=== PATIENT | female | born 1945 | race Native Hawaiian/Other Pacific Islander ===

== ENCOUNTER 2019-03-18 12:35 | Outpatient (REF) | payer OTHER, SELFPAY ==
[2019-03-18 18:20] LABS: HCT 45.9 % (36.0-46.0); HGB 15.2 g/dL (12.0-15.5); Mean Corp. HGB Concentration 33.1 g/dL (32.0-36.0); Mean Corpuscular Hemoglobin 30.3 pg (27.0-33.0); Mean Corpuscular Volume 91.4 fL (80-95); Mean Platelet Volume 9.8 fL (8.0-11.0); Platelet Count 282 x1000/uL (130-400); RBC 5.02 m/cumm (4.00-5.20); RBC Distribution Width 12.8 % (11.7-14.6); White Blood Cell Count 5.13 k/cumm (4.4-10.8)
[2019-03-18 18:51] LABS: Anion Gap 8.8 mmol/L (3-11); BUN 14 mg/dL (7-18); CO2 30.2 mmol/L (21.0-32.0); CREATININE 0.81 mg/dL (0.55-1.02); Calcium 9.6 mg/dL (8.5-10.1); Chloride 104 mmol/L (98-107); Ferritin 77 ng/mL (8-252); Glucose 98 mg/dL (74-106); Potassium 4.7 mmol/L (3.5-5.1); Sodium 143 mmol/L (136-145); TSH (W/Ref FT4) 0.66 uIU/mL (0.36-3.74); Vitamin B12 794 pg/mL (193-986)
== END 2019-03-18 12:55 ==
LOC: NCHCN 12:35
PROVIDERS: Visit Provider Family Medicine
DX: G31.84 Mild cognitive impairment of uncertain or unknown etiology (principal); R80.9 Proteinuria, unspecified; L65.9 Nonscarring hair loss, unspecified; E03.9 Hypothyroidism, unspecified
CPT/HCPCS: 80048; 85027; 82607; 82728; 84443

== ENCOUNTER 2019-04-10 02:05 | Outpatient (CLI) | payer OTHER, SELFPAY ==
[2019-04-10] MEDS: Albuterol HFA 18 GM 200 PUFF INH IH (10:49)
[2019-04-10] MEDS: Inhaler, Assist Device 1 EACH MC (10:49)
--- NOTE | 2019-04-10 12:45 | PFT_ITS ---
PULMONARY FUNCTION TEST REPORT DATE OF SERVICE: April 10, 2019 REQUESTING PROVIDER: Dr. Kaleb Garcia Spirometry shows mild obstructive airways disease with no significant bronchodilator response. Lung volumes show no evidence of restriction. Diffusion capacity normal. Airways resistance normal. IMPRESSION: Mild obstructive airways disease with no significant bronchodilator response. Clinical correlation recommended. SHOSHANA/larry D/
== END 2019-04-10 02:25 ==
PROVIDERS: PCP Family Medicine; Visit Provider Family Medicine
DX: R06.09 Other forms of dyspnea (principal)
CPT/HCPCS: 94060; 94150; 94726; 94729

== ENCOUNTER 2019-05-19 08:45 | Outpatient (CLI) | payer MEDICARE, SELFPAY | END 2019-05-19 09:05 | PROVIDERS: PCP Family Medicine; Visit Provider Internal Medicine Cardiovascular Disease | DX: I25.10 Atherosclerotic heart disease of native coronary artery without angina pectoris (principal); E78.5 Hyperlipidemia, unspecified; Z95.1 Presence of aortocoronary bypass graft; I10 Essential (primary) hypertension | CPT/HCPCS: 99204; 93005; 93010 ==

== ENCOUNTER 2019-05-21 17:06 | Outpatient (REF) | payer MEDICARE, SELFPAY ==
--- NOTE | 2019-05-21 15:45 | PAPFT_PTH ---
PATIENT: Rebecca Middleton LOC: [facility] U#:[id number] AGE/SX: 74/F ROOM: RE05/21/[address]: Shefali Campos : 1945 BED: DIS: 05/21/2019 SPEC #: [id number] RECD: 05/21/19 17:47 STATUS: JOSE REQ #: [id number] SARAH: 05/21/19 15:[address]: Shefali Campos DEPT: [facility] Cytology RECD BY: Ellyn iNce ENTERED: 05/21/19 17:48 SP TYPE: PAPFT OTHR DR: Kaleb Garcia Tissues: 1 - CX/ENDOCX FOR PAP SMEARS Procedures: PAP THIN PREP/[facility] Screening HPV DNA PROBE Comments: [id number]
== END 2019-05-21 17:26 ==
LOC: LBN 17:06
PROVIDERS: PCP Family Medicine; Visit Provider Obstetrics & Gynecology Gynecology
DX: Z12.4 Encounter for screening for malignant neoplasm of cervix (principal); Z11.51 Encounter for screening for human papillomavirus (HPV)
CPT/HCPCS: 88142; 87624

== ENCOUNTER 2019-09-09 01:33 | Outpatient (CLI) | payer MEDICARE, SELFPAY ==
--- NOTE | 2019-09-09 10:42 | DI.MAMMO_ITS ---
EXAM: MAMMO SCREENING CLINICAL HISTORY: screening,Z12.39 TECHNIQUE: Mammograms were interpreted according to the usual protocol including computer analysis w Senscient CAD system, tomosynthesis and C-view imaging. COMPARISON: 2009 through 2019 from [facility]. FINDINGS: The breasts are composed of heterogeneously dense fibroglandular densities, Breast Density category C . No suspicious masses or suspicious microcalcifications are seen. No skin thickening or abnormal axillary lymph nodes are seen. There has been no significant change from prior exams. IMPRESSION: BI-RADS Category 1: Negative mammogram. Yearly screening mammography is recommended. Breast density category C, heterogeneously dense tissue which decreases the sensitivity of the mammog naila. The mammogram demonstrates the patient's breast tissue is dense. Dense breast tissue is very common a nd is not abnormal but dense breast tissue can make it harder to find cancer on a mammogram. Also, de nse breast tissue may increase breast cancer risk. This information about the result of the mammogram report was provided to the patient to raise their awareness. Use this report when you speak with the patient about their risks for breast cancer, which includes their family history. At that time, you may recommend additional screening tests (Ultrasound or MRI) as they might be useful based on their r isk. A negative radiographic report should not delay biopsy if a dominant or clinically suspicious mass is present. Up to ten percent of cancers are not identified on mammography. A negative report may reinforce clinical impression. Adenosis and dense breasts may obscure an underlying neoplasm. False positive reports average 6 to 10%.
== END 2019-09-09 01:53 ==
PROVIDERS: PCP Family Medicine; Visit Provider Obstetrics & Gynecology Gynecology
DX: Z12.31 Encounter for screening mammogram for malignant neoplasm of breast (principal)
CPT/HCPCS: 77063; 77067

== ENCOUNTER 2019-09-26 10:27 | Outpatient (CLI) | payer MEDICARE, SELFPAY ==
--- NOTE | 2019-09-26 09:30 | DI.RAD_ITS ---
EXAM: XR FINGER RT MIDDLE CLINICAL HISTORY: RMF pain TECHNIQUE: COMPARISON: No exams were available for comparison FINDINGS: Three views of the middle finger were obtained. There is narrowing of the cartilaginous joint spaces of the PIP and DIP joints with moderate marginal osteophyte formation at each of these joints. Find ings are consistent with degenerative arthritis. No other significant bony abnormality seen. IMPRESSION:
== END 2019-09-26 10:47 ==
PROVIDERS: PCP Family Medicine; Referring Provider Family Medicine; Visit Provider Student in an Organized Health Care Education/Training Program
DX: M79.644 Pain in right finger(s) (principal); M72.0 Palmar fascial fibromatosis [Dupuytren]; M15.2 Bouchard's nodes (with arthropathy); M65.331 Trigger finger, right middle finger; E11.9 Type 2 diabetes mellitus without complications; I10 Essential (primary) hypertension
CPT/HCPCS: 99203; 99214; 73140

== ENCOUNTER 2019-10-09 20:34 | Outpatient (REF) | payer MEDICARE, SELFPAY | END 2019-10-09 20:54 | LOC: NCHCN 20:34 | PROVIDERS: PCP Family Medicine; Visit Provider Family Medicine | DX: R39.89 Other symptoms and signs involving the genitourinary system (principal) | CPT/HCPCS: 87077; 87086; 87186 ==

== ENCOUNTER → 2019-10-23 11:27 | Outpatient (BNVA) | payer MEDICARE, SELFPAY | PROVIDERS: PCP Family Medicine; Referring Provider Family Medicine; Visit Provider Internal Medicine Cardiovascular Disease | DX: I25.10 Atherosclerotic heart disease of native coronary artery without angina pectoris (principal); E78.5 Hyperlipidemia, unspecified; I42.9 Cardiomyopathy, unspecified; I10 Essential (primary) hypertension; E11.69 Type 2 diabetes mellitus with other specified complication; Z79.84 Long term (current) use of oral hypoglycemic drugs | CPT/HCPCS: 99214 ==

== ENCOUNTER 2019-12-03 16:52 | Outpatient (REF) | payer MEDICARE, SELFPAY ==
[2019-12-03 20:56] LABS: COMMENT (LAB VIEW ONLY) 24.36 mg/dL; Microalb ug/mg Crea 20.5 ug/mg Cr
== END 2019-12-03 17:12 ==
LOC: NCHCN 16:52
PROVIDERS: PCP Family Medicine; Visit Provider Family Medicine
DX: E11.9 Type 2 diabetes mellitus without complications (principal)
CPT/HCPCS: 82043; 82570

== ENCOUNTER 2020-01-27 12:00 | Outpatient (CLI) | payer MEDICARE, SELFPAY ==
[2020-01-27 12:43] LABS: Troponin I < 0.05 ng/mL (<0.06)
[2020-01-27 12:54] LABS: D-Dimer 310 ng/mlFEU (<500)
== END 2020-01-27 12:20 ==
PROVIDERS: PCP Family Medicine; Visit Provider Family Medicine
DX: R07.9 Chest pain, unspecified (principal)
CPT/HCPCS: 36415; 84484; 85379

== ENCOUNTER → 2020-01-30 08:50 | Outpatient (BNVA) | payer MEDICARE, SELFPAY | PROVIDERS: PCP Family Medicine; Referring Provider Family Medicine; Visit Provider Internal Medicine Cardiovascular Disease | DX: I25.10 Atherosclerotic heart disease of native coronary artery without angina pectoris (principal); I10 Essential (primary) hypertension; E78.5 Hyperlipidemia, unspecified; E11.9 Type 2 diabetes mellitus without complications; Z79.84 Long term (current) use of oral hypoglycemic drugs | CPT/HCPCS: 99214 ==

== ENCOUNTER 2020-03-09 15:12 | Outpatient (REF) | payer MEDICARE, SELFPAY ==
[2020-03-09 18:45] LABS: Anion Gap 9.9 mmol/L (3-11); BUN 17 mg/dL (7-18); CO2 26.1 mmol/L (21.0-32.0); CREATININE 0.96 mg/dL (0.55-1.02); Calcium 8.9 mg/dL (8.5-10.1); Calculated LDL 86 mg/dL (<100); Chloride 104 mmol/L (98-107); Cholesterol 187 mg/dL (<200); Estimated GFR 56.81 (mL/min/1.73m2); Glucose 156 mg/dL (74-106); HDL Cholesterol 72 mg/dL (40-60); Potassium 4.2 mmol/L (3.5-5.1); Sodium 140 mmol/L (136-145); Triglyceride 146 mg/dL (<150)
[2020-03-09 19:03] LABS: Hemoglobin A1C 6.1 % (<5.7)
== END 2020-03-09 15:32 ==
LOC: NCHCN 15:12
PROVIDERS: PCP Family Medicine; Visit Provider Family Medicine
DX: I10 Essential (primary) hypertension (principal); R07.9 Chest pain, unspecified; I45.10 Unspecified right bundle-branch block; E11.9 Type 2 diabetes mellitus without complications
CPT/HCPCS: 80048; 80061; 83036; 84443

== ENCOUNTER → 2020-04-26 09:22 | Outpatient (BNVA) | payer MEDICARE, SELFPAY | PROVIDERS: PCP Family Medicine; Referring Provider Family Medicine; Visit Provider Internal Medicine Cardiovascular Disease | DX: I25.10 Atherosclerotic heart disease of native coronary artery without angina pectoris (principal); I42.8 Other cardiomyopathies; Z95.1 Presence of aortocoronary bypass graft; E78.5 Hyperlipidemia, unspecified; I10 Essential (primary) hypertension; E11.9 Type 2 diabetes mellitus without complications; Z79.84 Long term (current) use of oral hypoglycemic drugs | CPT/HCPCS: 99214 ==

== ENCOUNTER 2020-06-01 16:19 | Outpatient (REF) | payer MEDICARE, SELFPAY | END 2020-06-01 16:20 | disposition home or self-care (01) | LOC: LBN 16:19 | PROVIDERS: PCP Family Medicine; Visit Provider Nurse Practitioner Women's Health | DX: R30.0 Dysuria (principal) | CPT/HCPCS: 87077; 87086; 87186 ==

== ENCOUNTER 2020-06-17 16:56 | Outpatient (REF) | payer MEDICARE, SELFPAY | END 2020-06-17 16:57 | disposition home or self-care (01) | LOC: NCHCN 16:56 | PROVIDERS: PCP Family Medicine; Visit Provider Nurse Practitioner Family | DX: R10.2 Pelvic and perineal pain (principal) | CPT/HCPCS: 87077; 87086; 87186 ==

== ENCOUNTER → 2020-11-05 10:36 | Outpatient (BNVA) | payer MEDICARE, SELFPAY | PROVIDERS: PCP Family Medicine; Referring Provider Family Medicine; Visit Provider Internal Medicine Cardiovascular Disease | DX: I25.10 Atherosclerotic heart disease of native coronary artery without angina pectoris (principal); E78.5 Hyperlipidemia, unspecified; I10 Essential (primary) hypertension; E11.9 Type 2 diabetes mellitus without complications | CPT/HCPCS: 99214; 99213 ==

== ENCOUNTER 2020-12-24 12:00 | Outpatient (REF) | payer MEDICARE, SELFPAY ==
--- NOTE | 2020-12-24 16:00 | SKI_PTH ---
PATIENT: Rebecca Middleton LOC: [facility] U#:[id number] AGE/SX: 75/F ROOM: RE12/24/[address]: Kaleb Garcia : 1945 BED: DIS: 12/24/2020 SPEC #: [id number] RECD: 12/28/20 11:44 STATUS: JOSE REMarco Antonio #: [id number] SARAH: 12/24/20 16:[address]: Kaleb Garcia DEPT: Surgical Specimen RECD BY: Amada Eason Tissues: 1 - SKIN BIOPSY(SHAVE/PUNCH) Procedures: SKIN LEVEL 4 Comments: [id number]
== END 2020-12-24 12:01 | disposition home or self-care (01) ==
LOC: LBN 12:00
PROVIDERS: PCP Family Medicine; Visit Provider Family Medicine
DX: L81.4 Other melanin hyperpigmentation (principal); D22.72 Melanocytic nevi of left lower limb, including hip
CPT/HCPCS: 88305

== ENCOUNTER 2021-03-07 21:58 | Outpatient (REF) | payer MEDICARE, SELFPAY ==
[2021-03-07 21:52] LABS: Anion Gap 10.6 mmol/L (3-11); BUN 14 mg/dL (7-18); CO2 28.4 mmol/L (21.0-32.0); CREATININE 0.7 mg/dL (0.55-1.02); Calcium 8.7 mg/dL (8.5-10.1); Chloride 105 mmol/L (98-107); Glucose 112 mg/dL (74-106); LDL CHOLESTEROL 67 mg/dL (<100); Magnesium 1.6 mg/dL (1.8-2.4); Potassium 4.1 mmol/L (3.5-5.1); Sodium 144 mmol/L (136-145); TSH (W/Ref FT4) 0.72 uIU/mL (0.36-3.74)
== END 2021-03-07 21:59 | disposition home or self-care (01) ==
LOC: NCHCN 21:58
PROVIDERS: PCP Family Medicine; Visit Provider Family Medicine
DX: E03.9 Hypothyroidism, unspecified (principal); I25.810 Atherosclerosis of coronary artery bypass graft(s) without angina pectoris; E11.9 Type 2 diabetes mellitus without complications
CPT/HCPCS: 80048; 83721; 83735; 84443

== ENCOUNTER → 2021-03-11 11:05 | Outpatient (BNVA) | payer MEDICARE, SELFPAY | PROVIDERS: PCP Family Medicine; Referring Provider Family Medicine; Visit Provider Student in an Organized Health Care Education/Training Program | DX: M72.0 Palmar fascial fibromatosis [Dupuytren] (principal) | CPT/HCPCS: 99213 ==

== ENCOUNTER → 2021-05-17 10:27 | Outpatient (BNVA) | payer MEDICARE, SELFPAY | PROVIDERS: PCP Family Medicine; Referring Provider Family Medicine; Visit Provider Internal Medicine Cardiovascular Disease | DX: I25.10 Atherosclerotic heart disease of native coronary artery without angina pectoris (principal); E78.5 Hyperlipidemia, unspecified; R07.89 Other chest pain | CPT/HCPCS: 99213 ==

== ENCOUNTER 2021-09-12 16:01 | Outpatient (REF) | payer MEDICARE, SELFPAY ==
[2021-09-12 18:23] LABS: Anion Gap 7.5 mmol/L (3-11); BUN 12 mg/dL (7-18); CO2 30.5 mmol/L (21.0-32.0); CREATININE 0.8 mg/dL (0.55-1.02); Calcium 8.9 mg/dL (8.5-10.1); Chloride 102 mmol/L (98-107); Glucose 120 mg/dL (74-106); Magnesium 1.9 mg/dL (1.8-2.4); Potassium 4.4 mmol/L (3.5-5.1); Sodium 140 mmol/L (136-145)
[2021-09-14 09:20] LABS: Hepatitis B Surface Ag Negative (Negative)
[2021-09-14 11:04] LABS: Hepatitis C Ab w Rflx HCV PCR Negative (Negative)
== END 2021-09-12 16:02 | disposition home or self-care (01) ==
LOC: NCHCN 16:01
PROVIDERS: PCP Family Medicine; Visit Provider Family Medicine
DX: E83.42 Hypomagnesemia (principal); R80.9 Proteinuria, unspecified; Z51.81 Encounter for therapeutic drug level monitoring; Z11.59 Encounter for screening for other viral diseases
CPT/HCPCS: 80048; 86803; 87340; 83735

== ENCOUNTER 2021-11-15 08:27 | Outpatient (CLI) | payer MEDICARE, SELFPAY | END 2021-11-15 08:28 | disposition home or self-care (01) | LOC: DI.CARD 08:28 | PROVIDERS: PCP Family Medicine; Visit Provider Internal Medicine Cardiovascular Disease | DX: R69 Illness, unspecified (principal) | CPT/HCPCS: 93010 ==

== ENCOUNTER → 2021-11-15 10:46 | Outpatient (BNVA) | payer MEDICARE, SELFPAY | PROVIDERS: PCP Family Medicine; Referring Provider Family Medicine; Visit Provider Internal Medicine Cardiovascular Disease | DX: I25.10 Atherosclerotic heart disease of native coronary artery without angina pectoris (principal); E78.5 Hyperlipidemia, unspecified; R07.89 Other chest pain | CPT/HCPCS: 99214; 99213 ==

== ENCOUNTER 2022-05-22 17:46 | Outpatient (CLI) | payer MEDICARE, SELFPAY ==
--- NOTE | 2022-05-22 | DI.RAD_ITS ---
Exam(s) XR FOOT RT COMPLETE EXAM: XR FOOT RT COMPLETE CLINICAL HISTORY: pain in rt foot. TECHNIQUE: 2D digital imaging was performed of the right foot. Images were obtained. AP, oblique and lateral views were obtained. COMPARISON: No exams were available for comparison FINDINGS: BONES: No acute fracture is present. No bony destructive lesion is seen. Postsurgical changes are see n in the distal tibia and fibula. JOINTS: No dislocation present. There are mild degenerative changes seen in the foot. SOFT TISSUE: Normal. IMPRESSION: No acute abnormality. DATA REPOSITORY: RADIATION DOSE DELIVERED:
--- NOTE | 2022-05-22 18:17 | DI.VRAD_ITS ---
PROCEDURE INFORMATION: Exam: XR Right Foot Exam date and time: 05/22/2022 5:48 PM Age: 77 years old Clinical indication: Other: Pain RT foot TECHNIQUE: Imaging protocol: Radiologic exam of the Right foot. Views: 3 or more views. COMPARISON: No relevant prior studies available. FINDINGS: Bones/joints: Degenerative changes in the 1st metatarsal-phalangeal joint and IP joint. Degenerative changes in the tarsal bones. Internal fixation device in the distal fibula and tibia. There is no evidence of acute fracture.There is no evidence of malalignment or dislocation. Soft tissues: Normal. IMPRESSION: There is no evidence of acute fracture.There is no evidence of malalignment or dislocation. Dictated and Authenticated by: David Clement MD. Ordering:SHAYY FOLEY MD
== END 2022-05-22 18:06 ==
LOC: DI 17:48
PROVIDERS: PCP Family Medicine; Visit Provider Nurse Practitioner Family
DX: M79.671 Pain in right foot (principal); M19.071 Primary osteoarthritis, right ankle and foot
CPT/HCPCS: 73630

== ENCOUNTER 2022-06-09 09:36 | Outpatient (CLI) | payer MEDICARE, SELFPAY ==
--- NOTE | 2022-06-09 08:30 | DI.RAD_ITS ---
Exam(s) XR FOOT RT LIMITED EXAM: XR FOOT RT LIMITED CLINICAL HISTORY: right foot injury. TECHNIQUE: 2D digital imaging was performed. One dorsal plantar view. COMPARISON: CR,XR XR FOOT RT COMPLETE from 05/22/2022 FINDINGS: BONES: No acute or subacute fracture is present. No bony destructive lesion is seen.Hardware again no kiah in distal tibia and fibula. JOINTS: No dislocation present. Mild degenerative changes 1st MTP joint. Mild degenerative changes of the tarsal region. SOFT TISSUE: Normal. IMPRESSION: No acute abnormality. DATA REPOSITORY: RADIATION DOSE DELIVERED:
== END 2022-06-09 09:37 | disposition home or self-care (01) ==
LOC: DIORS 09:36
PROVIDERS: PCP Family Medicine; Referring Provider Family Medicine; Visit Provider Physician Assistant
DX: S93.621A Sprain of tarsometatarsal ligament of right foot, initial encounter; X58.XXXA Exposure to other specified factors, initial encounter; R60.0 Localized edema
CPT/HCPCS: 99214; 73620

== ENCOUNTER 2022-06-12 01:02 | Outpatient (CLI) | payer MEDICARE, SELFPAY ==
--- NOTE | 2022-06-12 07:15 | DI.MRI_ITS ---
Exam(s) MR LOWER EXTREMITY RT WO EXAM: MR LOWER EXTREMITY RT WO CLINICAL HISTORY: PAIN, INJURY, ?LISFRANC FX.[id number]. TECHNIQUE: Multiplanar multisequence MRI was performed.. COMPARISON: Plain films 22 May and 09 June 2022 FINDINGS: BONES: Nondisplaced fracture seen extending transversely through the base of the 4th metatarsal and m ild surrounding edema. Fracture extending obliquely through the medial base of the 3rd metatarsal si milar fracture extending obliquely through the medial corner of the base of the 2nd metatarsal. Mild edema without discrete fracture at the base of the 1st metatarsal. Edema within the kidney forms an d distal aspect of the cuboid without definite discrete fracture. Joints: No dislocation or subluxation. MUSCULOTENDINOUS STRUCTURES: Visualized portion of the planar fascia is unremarkable. The visualized intrinsic muscles and tendons of the foot are unremarkable. SOFT TISSUES: Unremarkable. OTHER FINDINGS: None. IMPRESSION: Subacute nondisplaced fractures at the bases of the 2nd through 4th metatarsals. marrow edema in th e base of the 1st metatarsal, cuneiforms and distal cuboid. DATA REPOSITORY:
== END 2022-06-12 01:22 ==
LOC: DI 01:02
PROVIDERS: PCP Family Medicine; Visit Provider Student in an Organized Health Care Education/Training Program
DX: S92.324A Nondisplaced fracture of second metatarsal bone, right foot, initial encounter for closed fracture (principal); S92.334A Nondisplaced fracture of third metatarsal bone, right foot, initial encounter for closed fracture; S92.344A Nondisplaced fracture of fourth metatarsal bone, right foot, initial encounter for closed fracture; X58.XXXA Exposure to other specified factors, initial encounter
CPT/HCPCS: 73718

== ENCOUNTER 2022-07-07 11:17 | Outpatient (CLI) | payer MEDICARE, SELFPAY ==
--- NOTE | 2022-07-07 11:00 | DI.RAD_ITS ---
Exam(s) XR FOOT RT COMPLETE EXAM: XR FOOT RT COMPLETE CLINICAL HISTORY: F/U R FOOT INJURY. TECHNIQUE: 2D digital imaging was performed of the right foot. Three images were obtained. AP, obl ique and lateral views were obtained. COMPARISON: CR,XR XR FOOT RT COMPLETE from 05/22/2022 CR XR FOOT RT LIMITED from 06/09/2022 MR MR LOWER EXTREMITY RT WO from 06/12/2022 FINDINGS: BONES: The fracture seen through the bases of the 2nd, 3rd and 4th metatarsals are best appreciated o n the MRI of the foot from 06/12/2022. Though the fractures through the 2nd and 3rd metatarsals can b e seen on the current examination. No new fractures are seen. Postsurgical changes are seen in the distal tibia and fibula. No bony destructive lesion is seen. JOINTS: No dislocation present. SOFT TISSUE: Normal. IMPRESSION: Stable metatarsal fractures. DATA REPOSITORY: RADIATION DOSE DELIVERED:
== END 2022-07-07 11:18 | disposition home or self-care (01) ==
LOC: DIORS 11:18
PROVIDERS: PCP Family Medicine; Referring Provider Family Medicine; Visit Provider Physician Assistant
DX: S93.621D Sprain of tarsometatarsal ligament of right foot, subsequent encounter (principal); X58.XXXD Exposure to other specified factors, subsequent encounter
CPT/HCPCS: 99213; 73630

== ENCOUNTER 2022-08-08 07:49 | Outpatient (CLI) | payer MEDICARE, SELFPAY ==
--- NOTE | 2022-08-08 07:45 | RT.EKG_ITS ---
APPROVED REPORT Exam: Resting ECG Reason for Exam: CAD Patient Location: O HR:89 bpm ECG Measurements Heart Rate 89 AXIS WA 160 P 64 QRSd 131 QRS -63 QT 382 T 26 QTc 465 Conclusion Sinus rhythm...normal P axis, V-rate 50- 99 Left atrial enlargement...P, P'>60mS, <-0.15mV V1 Right bundle branch block...QRSd>120, terminal axis(90,270)
== END 2022-08-08 07:50 | disposition home or self-care (01) ==
LOC: DI.CARD 07:50
PROVIDERS: PCP Family Medicine; Visit Provider Internal Medicine Cardiovascular Disease
DX: I25.10 Atherosclerotic heart disease of native coronary artery without angina pectoris (principal)
CPT/HCPCS: 93010

== ENCOUNTER → 2022-08-08 11:34 | Outpatient (BNVA) | payer MEDICARE, SELFPAY | PROVIDERS: PCP Family Medicine; Visit Provider Internal Medicine Cardiovascular Disease | DX: I25.810 Atherosclerosis of coronary artery bypass graft(s) without angina pectoris (principal); E78.5 Hyperlipidemia, unspecified | CPT/HCPCS: 93005; 99213 ==

== ENCOUNTER 2022-08-12 14:34 | Outpatient (REF) | payer MEDICARE, SELFPAY | END 2022-08-12 14:35 | disposition home or self-care (01) | LOC: NCHCN 14:34 | PROVIDERS: PCP Family Medicine; Visit Provider Physician Assistant Medical | DX: L02.511 Cutaneous abscess of right hand (principal); L03.011 Cellulitis of right finger | CPT/HCPCS: 87077; 87070; 87186; 87205 ==

== ENCOUNTER 2022-11-06 17:04 | Outpatient (REF) | payer MEDICARE, SELFPAY ==
[2022-11-06 19:13] LABS: BUN 14 mg/dL (7-18); CREATININE 0.7 mg/dL (0.55-1.02); Chloride 106 mmol/L (98-107); Estimated GFR 89.02 (mL/min/1.73m2); Glucose 104 mg/dL (74-106); Potassium 4.4 mmol/L (3.5-5.1); Sodium 143 mmol/L (136-145); TSH 1.28 uIU/mL (0.36-3.74)
== END 2022-11-06 17:05 | disposition home or self-care (01) ==
LOC: NCHCN 17:04
PROVIDERS: PCP Family Medicine; Visit Provider Family Medicine
DX: E03.9 Hypothyroidism, unspecified (principal); E11.9 Type 2 diabetes mellitus without complications
CPT/HCPCS: 80048; 84443

== ENCOUNTER → 2023-02-05 12:56 | Outpatient (BNVA) | payer MEDICARE, SELFPAY | PROVIDERS: PCP Family Medicine; Visit Provider Internal Medicine Cardiovascular Disease | DX: I25.810 Atherosclerosis of coronary artery bypass graft(s) without angina pectoris (principal) | CPT/HCPCS: 99213 ==

== ENCOUNTER 2023-08-13 12:55 | Outpatient (CLI) | payer MEDICARE, SELFPAY ==
--- NOTE | 2023-08-13 13:15 | RT.EKG_ITS ---
APPROVED REPORT Exam: Resting ECG Reason for Exam: CAD Patient Location: O HR:102 bpm ECG Measurements Heart Rate 102 AXIS ID 180 P 67 QRSd 130 QRS -67 QT 375 T 27 QTc 489 Conclusion Sinus tachycardia...rate> 99 Left atrial enlargement...P, P'>60mS, <-0.15mV V1 Right bundle branch block...QRSd>120, terminal axis(90,270)
== END 2023-08-13 12:56 | disposition home or self-care (01) ==
LOC: DI.CARD 13:16
PROVIDERS: PCP Family Medicine; Referring Provider Family Medicine; Visit Provider Internal Medicine Cardiovascular Disease
DX: I25.810 Atherosclerosis of coronary artery bypass graft(s) without angina pectoris (principal)
CPT/HCPCS: 93010

== ENCOUNTER → 2023-08-13 12:55 | Outpatient (BNVA) | payer MEDICARE, SELFPAY | PROVIDERS: PCP Family Medicine; Referring Provider Family Medicine; Visit Provider Internal Medicine Cardiovascular Disease | DX: R00.0 Tachycardia, unspecified (principal); I25.810 Atherosclerosis of coronary artery bypass graft(s) without angina pectoris | CPT/HCPCS: 93005; 99213 ==

== ENCOUNTER 2023-08-27 18:23 | Outpatient (CLI) | payer MEDICARE, SELFPAY ==
[2023-08-27 17:03] LABS: Hemoglobin A1C 6.4 % (<5.7)
[2023-08-27 18:45] LABS: Anion Gap 11.7 mmol/L (3-11); BUN 16 mg/dL (7-18); CO2 28.3 mmol/L (21.0-32.0); Calcium 8.9 mg/dL (8.5-10.1); Chloride 105 mmol/L (98-107); Estimated GFR 57.66 (mL/min/1.73m2); Glucose 102 mg/dL (74-106); Sodium 145 mmol/L (136-145); TSH (W/Ref FT4) 2.55 uIU/mL (0.36-3.74)
[2023-08-27 20:30] LABS: Vitamin D 25 Total 18.9 ng/mL (30-100)
== END 2023-08-27 18:24 | disposition home or self-care (01) ==
LOC: LBO 18:23
PROVIDERS: PCP Family Medicine; Visit Provider Family Medicine
DX: E11.9 Type 2 diabetes mellitus without complications (principal); M81.0 Age-related osteoporosis without current pathological fracture; E03.9 Hypothyroidism, unspecified
CPT/HCPCS: 36415; 80048; 82306; 83036; 84443

== ENCOUNTER → 2023-09-06 13:45 | Outpatient (BNVA) | payer MEDICARE, SELFPAY | PROVIDERS: PCP Family Medicine; Referring Provider Family Medicine; Visit Provider Nurse Practitioner Adult Health | DX: F03.90 Unspecified dementia, unspecified severity, without behavioral disturbance, psychotic disturbance, mood disturbance, and anxiety (principal) | CPT/HCPCS: 99215; G2212 ==

== ENCOUNTER → 2023-09-13 02:16 | Outpatient (CLI) | payer MEDICARE, SELFPAY ==
--- NOTE | 2023-09-13 | DI.DEXA_ITS ---
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 Lat eral survey image of the thoracic and lumbar spine. COMPARISON: No exams were available for comparison FINDINGS: Lateral view of the thoracic and lumbar spine shows no evidence of compression fractures. Bone mineral density measurements of the lumbar spine correspond to a total T-score of -0.7, in the normal range. Bone mineral density measurements of the left hip correspond to a total T-score of -1.8. The femora l neck T-score is -2.2, in the osteopenic range.. Theleft forearm bone mineral density measurements correspond to a T-score of the distal 3rd of -2.8, in the osteoporotic range.. IMPRESSION: Normal bone mineral density of the spine. Osteopenia the hip. Osteoporosis of the forearm.
== END ==
PROVIDERS: PCP Family Medicine; Visit Provider Family Medicine
DX: M81.0 Age-related osteoporosis without current pathological fracture (principal); Z13.820 Encounter for screening for osteoporosis
CPT/HCPCS: 77080

== ENCOUNTER → 2023-11-08 15:27 | Outpatient (BNVA) | payer MEDICARE, SELFPAY | PROVIDERS: PCP Family Medicine; Referring Provider Family Medicine; Visit Provider Nurse Practitioner Adult Health | DX: G30.9 Alzheimer's disease, unspecified (principal); F02.80 Dementia in other diseases classified elsewhere, unspecified severity, without behavioral disturbance, psychotic disturbance, mood disturbance, and anxiety; F01.50 Vascular dementia, unspecified severity, without behavioral disturbance, psychotic disturbance, mood disturbance, and anxiety | CPT/HCPCS: 99214 ==

== ENCOUNTER → 2024-02-14 12:53 | Outpatient (BNVA) | payer MEDICARE, SELFPAY | PROVIDERS: PCP Family Medicine; Visit Provider Internal Medicine Cardiovascular Disease | DX: I25.810 Atherosclerosis of coronary artery bypass graft(s) without angina pectoris (principal) | CPT/HCPCS: 99213 ==

== ENCOUNTER → 2024-04-08 14:06 | Outpatient (BNVA) | payer MEDICARE, SELFPAY | PROVIDERS: PCP Family Medicine; Referring Provider Family Medicine; Visit Provider Nurse Practitioner Adult Health | DX: G30.9 Alzheimer's disease, unspecified (principal); F02.80 Dementia in other diseases classified elsewhere, unspecified severity, without behavioral disturbance, psychotic disturbance, mood disturbance, and anxiety | CPT/HCPCS: 99214 ==

== ENCOUNTER 2024-05-08 14:56 | Observation (INO) | payer MEDICARE, SELFPAY ==
[2024-05-08] VITALS (17 sets, daily range): BP systolic 143–182; BP diastolic 63–91; PULSE 81–110; RESP 14–26; TEMP 36.5–36.6; O2SAT 94–99
--- NOTE | 2024-05-08 15:00 | RT.EKG_ITS ---
APPROVED REPORT Exam: Resting ECG Reason for Exam: syncope Patient Location: E HR:88 bpm ECG Measurements Heart Rate 88 AXIS TN 158 P 84 QRSd 139 QRS 17 QT 396 T 70 QTc 482 Conclusion Sinus rhythm 88 PVC RBBB no stemi
--- NOTE | 2024-05-08 15:36 | DI.CT_ITS ---
Exam(s) CT HEAD CERVICAL SPINE WO EXAM: CT HEAD CERVICAL SPINE WO CLINICAL HISTORY: trauma. TECHNIQUE: Imaging Protocol: Axial computed tomography images with coronal and sagittal reformatted images were created and reviewed COMPARISON: No exams were available for comparison FINDINGS: CT Head: Ventricles and Extra axial spaces: Normal in size and morphology for the patient's age. Hemorrhage: None. Cerebral parenchyma: There are areas of decreased attenuation in the white matter most consistent wit h chronic microvascular ischemic disease. There is no evidence of an acute territorial infarct. No acute mass effect is identified. Midline shift: None. Brainstem/Cerebellum: Normal. Calvarium: Normal. Visualized Paranasal sinuses/Mastoids: Clear. Soft Tissues: Unremarkable. CT Cervical Spine: Bones: No acute fracture or subluxation. There are degenerative changes seen in the cervical spine. Soft Tissues: There is a multinodular thyroid gland. There is a 1.4 cm nodule in the right lobe of t he thyroid gland. There does appear to be some calcification associated with the nodule. Nonemergen t thyroid ultrasound may be obtained for further evaluation. Lung Apices: Clear. IMPRESSION: 1. No acute intracranial process. 2. No acute fracture or subluxation in the cervical spine. 3. Right thyroid nodule. Nonemergent thyroid ultrasound should be considered for further evaluation. Unexpected findings RADIATION DOSE DELIVERED: 1,211.12mGy.cm Total DLP DATA REPOSITORY: All CT scans at this facility are submitted to the National Radiology Data Registry (NRDR) Dose Index Registry (DIR) with the [employer] ([employer]). RADIATION OPTIMIZATION: All CT scans at this facility use at least one of these dose optimization te chniques: automated exposure control; mA and/or kV adjustment per patient size (includes targeted exa ms where dose is matched to clinical indication); or iterative reconstruction.
--- NOTE | 2024-05-08 15:45 | DI.RAD_ITS ---
Exam(s) XR HIP LT COMPLETE AP PELVIS EXAM: XR HIP LT COMPLETE AP PELVIS CLINICAL HISTORY: fall. TECHNIQUE: 2D digital imaging was performed of the left hip. Two views were obtained. AP pelvis an d lateral left hip views were obtained. COMPARISON: No exams were available for comparison FINDINGS: BONES: No acute fracture is present. No bony destructive lesion is seen. JOINTS: No dislocation present. There are degenerative changes seen in the hips and lumbar spine. Th e sacroiliac joints are intact as is the symphysis pubis. SOFT TISSUE: Vascular calcifications are present. IMPRESSION: No acute fracture or dislocation. DATA REPOSITORY: RADIATION DOSE DELIVERED:
[2024-05-08 16:06] LABS: Abs Immature Grans 0.04 10^3/uL (0.0-0.06); Absolute Basophil Count 0.03 10^3/uL (0.0-0.2); Absolute Eosinophil Count 0.01 10^3/uL (0.0-0.7); Absolute Lymphocyte Count 0.84 10^3/uL (1.2-3.4); Absolute Monocyte Count 0.47 10^3/uL (0.1-0.8); Absolute Neutrophil Count 9.07 10^3/uL (1.2-6.7); Basophils % 0.3 %; Eosinophils % 0.1 %; HCT 45.6 % (36.0-46.0); HGB 15.1 g/dL (11.2-15.7); Immature Grans % 0.4 %; MCH 31.1 pg (27.0-33.0); MCHC 33.1 % (32.0-36.0); MCV 94 fL (80-95); MPV 9.4 fL (8.0-11.0); Monocytes % 4.5 %; Neutrophils % 86.7 %; Platelet Count 223 10^3/uL (130-400); RBC 4.86 10^6/uL (3.93-5.22); RDW-SD 41.7 fL; WBC 10.46 10^3/uL (4.4-10.8)
[2024-05-08] MEDS: Lidocaine/Epinephri/Tetracaine Topical Gel 3 ML TP (16:12)
[2024-05-08 16:21] LABS: ALT 47 U/L (14-59); AST 35 U/L (15-37); Albumin 3.7 g/dL (3.4-5.0); Alkaline Phosphatase 95 U/L (46-116); Anion Gap 2.9 mmol/L (3-11); BUN 13 mg/dL (7-18); Bilirubin, Total 0.61 mg/dL (0.2-1.0); CO2 32.1 mmol/L (21.0-32.0); CREATININE 0.9 mg/dL (0.55-1.02); Calcium 8.9 mg/dL (8.5-10.1); Chloride 105 mmol/L (98-107); Estimated GFR 65.03 (mL/min/1.73m2); Glucose 115 mg/dL (74-106); Magnesium 1.7 mg/dL (1.8-2.4); Potassium 4.4 mmol/L (3.5-5.1); Sodium 140 mmol/L (136-145); Total Protein 7.2 g/dL (6.4-8.2)
[2024-05-08 16:25] LABS: Bilirubin Negative (Negative); Blood Negative (Negative); Clarity Clear (Clear); Glucose Negative (Negative); Ketones Negative (Negative); Leukocyte Esterase Trace (Negative); Nitrite Negative (Negative); Urobilinogen 0.2 mg/dL (Up to 0.2)
[2024-05-08 16:30] LABS: TSH 1.03 uIU/mL (0.36-3.74); Troponin I 4 ng/L (<or=51)
[2024-05-08 16:57] LABS: Bacteria Rare HPF (Negative); C & S Indicated? No; Casts Negative LPF (Negative); Crystals Negative HPF (Negative); Epithelial Cells Rare HPF (Negative); Mucus Negative (Negative); RBC 0-2 HPF (0-2); WBC 0-2 HPF (0-5)
--- NOTE | 2024-05-08 17:36 | ED.GENADUL_ITS ---
Discharge Plan Disposition Patient Disposition: Admit to [facility] Condition: Stable Discharge Details Clinical Impression: Syncope, Alzheimer's dementia without behavioral disturbance, Laceration of face, Thyroid nodule Primary Care Provider: Marybel Tom ED Provider: Keith Nascimento Home Meds and New Rx's Prescriptions: No Action metoprolol succinate 50 mg tablet extended release 24 hr 50 mg PO DAILY multivitamin [Daily Multi-Vitamin] Tablet 1 tab PO DAILY atorvastatin [Lipitor] 40 mg tablet 40 mg PO DAILY alendronate 70 mg tablet 70 mg PO QWEEK aspirin [Adult Aspirin Regimen] 81 mg tablet,delayed release (DR/EC) 81 mg PO ONCE PRN rivastigmine tartrate 4.5 mg capsule 4.5 mg PO BID memantine 10 mg tablet 10 mg PO BID Qty: 180 3RF metformin 500 mg tablet 500 mg PO DAILY levothyroxine [Synthroid] 137 mcg tablet 68.5 mcg PO DAILY rivastigmine tartrate 1.5 mg capsule 1.5 mg PO BID Patient Comments: TAKE ONE CAPSULE BY MOUTH TWICE A DAY memantine 5 mg tablet 5 mg PO QHS Patient Comments: TAKE 1 TABLET BY MOUTH AT BEDTIME FOR WEEK 1, 1TAB IN THE MORNING AND AT BEDTIME FOR WEEK 2, 1TAB IN THE MORNING AND TAKE TWO TABLETS AT BED HPI General Date/Time Provider Initiated Documentation: 05/08/24 15:36 . Limitations to Documentation: altered mental status (dementia) . Information obtained by: patient and family . HPI Narrative: Today 79-year-old female with past medical history of Alzheimer's dementia, COPD, CAD (CABG 8 yrs ago) presents for evaluation after 2 witnessed syncopal episodes at home. The patient has no memory of any event. The provides the history. He states that when he woke up this morning he noted that she had an injury to her upper lip. She has no memory of when or why this might of happened. He did not see or hear a fall overnight. Around 10 AM she was in the bathroom and was looking at her lip. The was in the bathroom with her and she became very lightheaded and fell to the ground. At that time he assisted her to the ground and she did not strike or hit anything. He thought that this occurred because she was upset about looking at the blood on her face. Around 2 PM, she was again in the bathroom and he heard her hit the floor. When he went into the bathroom, she was on the floor and was minimally responsive. She notes that there is a bump on the left side of her head. She is denied chest pain or recent illness. Related Data Home Medications ?Medication ?Instructions ?Recorded ?Confirmed alendronate 70 mg tablet 70 mg PO QWEEK 03/05/19 05/08/24 atorvastatin 40 mg tablet (Lipitor) 40 mg PO DAILY 03/05/19 05/08/24 multivitamin (Daily Multi-Vitamin 1 tab PO DAILY 03/05/19 05/08/24 tablet) metoprolol succinate 50 mg 50 mg PO DAILY 11/05/20 05/08/24 tablet,extended release 24 hr levothyroxine 137 mcg tablet 68.5 mcg PO DAILY 05/31/22 05/08/24 (Synthroid) metformin 500 mg tablet 500 mg PO DAILY 05/31/22 05/08/24 rivastigmine tartrate 4.5 mg 4.5 mg PO BID 08/13/23 05/08/24 capsule memantine 10 mg tablet 10 mg PO BID #180 tabs 11/08/23 05/08/24 aspirin 81 mg tablet,delayed 81 mg PO ONCE PRN 04/08/24 05/08/24 release (Adult Aspirin Regimen) memantine 5 mg tablet 5 mg PO QHS 05/08/24 05/08/24 rivastigmine tartrate 1.5 mg 1.5 mg PO BID 05/08/24 05/08/24 capsule Previous Rx's ?Medication ?Instructions ?Recorded memantine 10 mg tablet 10 mg PO BID #180 tabs 11/08/23 Allergies Allergy/AdvReac Type Severity Reaction Status Date / Time ciprofloxacin (From Cipro) Allergy Severe Hives Verified 05/08/24 15:12 General Stated Complaint: [id number] SONY: 3 Exam Narrative Exam Narrative: Review of Systems: All systems reviewed & are unremarkable except as noted in HPI and below Well-developed, no acute distress left parietal hematoma without laceration, skull deformity upper lip full thickness laceration involving aminta border no facial instability or malocclusion no loose dentition no c spine tenderness PERRL, normal conjunctiva RRR no murmur Unlabored respiratory effort, CTAB Nondistended abdomen , soft NT Extremities w/o deformity, mild left hip tenderness no focal neurologic deficits, confused regarding events, keeps repeating self , 5/5 strength Course Vital Signs Vital signs: Vital Signs Temperature 36.6 C 05/08/24 15:07 Pulse 91 H 05/08/24 15:07 Respiratory Rate 22 05/08/24 15:07 Blood Pressure 159/91 H 05/08/24 15:07 Pulse Oximetry 99 05/08/24 15:07 Temperature 36.6 C 05/08/24 15:07 Temperature Source Oral 05/08/24 15:07 Pulse 84 05/08/24 16:15 Pulse 89 05/08/24 16:15 Respiratory Rate 15 05/08/24 16:15 Respiratory Effort Normal 05/08/24 16:02 Respiratory Depth Normal 05/08/24 16:02 Respiratory Pattern Normal 05/08/24 16:02 Blood Pressure 177/70 H 05/08/24 16:15 Blood Pressure Mean 102 05/08/24 16:15 Blood Pressure Position Supine 05/08/24 15:07 Pulse Oximetry 98 05/08/24 16:15 Oxygen Delivery Method Room Air 05/08/24 15:07 Oxygen Flow Rate 0 05/08/24 15:07 Pain Level 6 05/08/24 16:21 Lab/Test Results Lab/Test Results: Laboratory Tests Range/Units 05/08/24 05/08/24 05/08/24 15:56 16:04 16:38 WBC (4.4-10.8) 10^3/uL 10.46 RBC (3.93-5.22) 10^6/uL 4.86 Hgb (11.2-15.7) g/dL 15.1 Hct (36.0-46.0) % 45.6 MCV (80-95) fL 94 MCH (27.0-33.0) pg 31.1 MCHC (32.0-36.0) % 33.1 RDW (11.7-14.6) % 12.0 Plt Count (130-400) 10^3/uL 223 MPV (8.0-11.0) fL 9.4 Immature Gran % % 0.4 Neutrophils % % 86.7 Lymphocytes % % 8.0 Monocytes % % 4.5 Eosinophils % % 0.1 Basophils % % 0.3 Nucleated RBC % (0.0-0.3) % 0.0 Absolute Neutrophils (1.2-6.7) 10^3/uL 9.07 H Absolute Lymphocytes (1.2-3.4) 10^3/uL 0.84 L Absolute Monocytes (0.1-0.8) 10^3/uL 0.47 Absolute Eosinophils (0.0-0.7) 10^3/uL 0.01 Absolute Basophils (0.0-0.2) 10^3/uL 0.03 Sodium (136-145) mmol/L 140 Potassium (3.5-5.1) mmol/L 4.4 Chloride (98-107) mmol/L 105 Carbon Dioxide (21.0-32.0) mmol/L 32.1 H Anion Gap (3-11) mmol/L 2.9 L BUN (7-18) mg/dL 13 Creatinine (0.55-1.02) mg/dL 0.9 Est GFR (CKD-EPI 2020) (mL/min/1.73m2) 65.03 Glucose (74-106) mg/dL 115 H Calcium (8.5-10.1) mg/dL 8.9 Magnesium (1.8-2.4) mg/dL 1.7 L Total Bilirubin (0.2-1.0) mg/dL 0.61 AST (15-37) U/L 35 ALT (14-59) U/L 47 Alkaline Phosphatase (46-116) U/L 95 Troponin I (<or=51) ng/L 4 Cancelled Total Protein (6.4-8.2) g/dL 7.2 Albumin (3.4-5.0) g/dL 3.7 TSH (0.36-3.74) uIU/mL 1.03 Urine Color (Yellow) Yellow Urine Clarity (Clear) Clear Urine pH (5-8) 6.0 Ur Specific [place] (1.005-1.025) 1.010 Urine Protein (Neg-Trace) mg/dL Negative Urine Ketones (Negative) mg/dL Negative Urine Blood (Negative) Negative Urine Nitrite (Negative) Negative Urine Bilirubin (Negative) Negative Urine Urobilinogen (Up to 0.2) mg/dL 0.2 Ur Leukocyte Esterase (Negative) Trace H Urine RBC (0-2) HPF 0-2 Urine WBC (0-5) HPF 0-2 Ur Epithelial Cells (Negative) HPF Rare Urine Crystals (Negative) HPF Negative Urine Bacteria (Negative) HPF Rare Urine Casts (Negative) LPF Negative Urine Mucus (Negative) Negative Ur Culture Indicated? No Urine Glucose (Negative) mg/dL Negative Range/Units 05/08/24 18:38 WBC (4.4-10.8) 10^3/uL RBC (3.93-5.22) 10^6/uL Hgb (11.2-15.7) g/dL Hct (36.0-46.0) % MCV (80-95) fL MCH (27.0-33.0) pg MCHC (32.0-36.0) % RDW (11.7-14.6) % Plt Count (130-400) 10^3/uL MPV (8.0-11.0) fL Immature Gran % % Neutrophils % % Lymphocytes % % Monocytes % % Eosinophils % % Basophils % % Nucleated RBC % (0.0-0.3) % Absolute Neutrophils (1.2-6.7) 10^3/uL Absolute Lymphocytes (1.2-3.4) 10^3/uL Absolute Monocytes (0.1-0.8) 10^3/uL Absolute Eosinophils (0.0-0.7) 10^3/uL Absolute Basophils (0.0-0.2) 10^3/uL Sodium (136-145) mmol/L Potassium (3.5-5.1) mmol/L Chloride (98-107) mmol/L Carbon Dioxide (21.0-32.0) mmol/L Anion Gap (3-11) mmol/L BUN (7-18) mg/dL Creatinine (0.55-1.02) mg/dL Est GFR (CKD-EPI 2020) (mL/min/1.73m2) Glucose (74-106) mg/dL Calcium (8.5-10.1) mg/dL Magnesium (1.8-2.4) mg/dL Total Bilirubin (0.2-1.0) mg/dL AST (15-37) U/L ALT (14-59) U/L Alkaline Phosphatase (46-116) U/L Troponin I (<or=51) ng/L Cancelled Total Protein (6.4-8.2) g/dL Albumin (3.4-5.0) g/dL TSH (0.36-3.74) uIU/mL Urine Color (Yellow) Urine Clarity (Clear) Urine pH (5-8) Ur Specific [place] (1.005-1.025) Urine Protein (Neg-Trace) mg/dL Urine Ketones (Negative) mg/dL Urine Blood (Negative) Urine Nitrite (Negative) Urine Bilirubin (Negative) Urine Urobilinogen (Up to 0.2) mg/dL Ur Leukocyte Esterase (Negative) Urine RBC (0-2) HPF Urine WBC (0-5) HPF Ur Epithelial Cells (Negative) HPF Urine Crystals (Negative) HPF Urine Bacteria (Negative) HPF Urine Casts (Negative) LPF Urine Mucus (Negative) Ur Culture Indicated? Urine Glucose (Negative) mg/dL Procedure Laceration Laceration 1: Date of Procedure: 05/08/24 Time of procedure: 17:41 Patient Consented: Verbally Site: lip Description: irregular and involves aminta border Depth: [id number] Local anesthetic: LET(lidocaine epinephrine tetracaine) Pre-repair:: wound explored and irrigated extensively Skin layer closed with: chromic gut Size (cm): 5-0 Number of sutures:: 1 Technique: simple, interrupted Procedure Description/Note: approximated the aminta border well no suture placed on the mucosal surface Medical Decision Making Emergent evaluation of syncope. The patient is not able to provide additional history or explain preceding symptoms or any other prodromal type event. She has obvious signs of trauma on examination. Her mental status is at baseline and she is not on any anticoagulation. The is at bedside providing most of the history. Otherwise she has a nonfocal neurologic exam. CT imaging of head and C-spine were obtained and these were unremarkable for any acute traumatic process. An x-ray of her left hip and pelvis was obtained due to the fall and some minor pain there. This also did not reveal an acute fracture. Lab work was reviewed, no clinically significant abnormalities noted there. Urinalysis does not demonstrate infection. EKG independently interpreted: Sinus 88, right bundle branch block with frequent PVCs. Laceration repaired without complication. Given her multiple syncopal events today and unclear etiology, will admit for telemetry monitoring and further evaluation. 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 Spontaneous drainage no antibiotics required Hyperlipemia (Acute) Coronary artery disease (Chronic) Urinary bladder incontinence (Acute) 03/10/2019. Unclear if ROSA MARIA. Rx for overactive bladder prescribed. Medical History Osteoporosis Essential hypertension Right bundle branch block Arteriosclerosis of coronary artery Hyperpigmentation of skin Polyneuropathy Urinary incontinence, mixed Mild neurocognitive disorder Diabetic neuropathy Type 2 diabetes mellitus Tendinitis Proteinuria Idiopathic osteoarthritis Dupuytren's disease Hypertrophic scar History of thyroid disorder Hx of chronic obstructive lung disease Dementia History of degenerative joint disease GERD (gastroesophageal reflux disease) Diabetes mellitus Hypothyroidism Nodular thyroid disease Hypertension complications Neuropathy, peripheral SOB (shortness of breath) Diabetic foot ulcer Atypical chest pain Surgical History Hx of CABG S/P CABG x 2 (~2017) Family History Mother , 88yo Heart disease Triple bypass Hypertension Hyperlipidemia Father , 70's Acoustic neuroma after surgery 1977 Social History Smoking/Tobacco Use Status: Never Second Hand Exposure: No Smoking risk assessment performed?: Yes Alcohol Intake: current Alcohol Intake frequency: a few times a week Alcohol type: wine Drug use: Never Household members: spouse and other Details: Bryson Moved from [place] 2017 to be closer to grandchildren Housing: house Number of Children: 2 number of grandchildren: 4 Communication Needs: None 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 Daughter Nixon lives in close proximity to patient. other child lives out of state. History History 2 Para Hx # Term Pregnancies 2 Multiple births Hx # Pregnancies Ectopic pregnancies AB induced Hx Number of Living Children AB spontaneous
--- NOTE | 2024-05-08 20:35 | W.PCEDHO ---
Registration Status: Primary Language: Preferred Language: ED Information & Data Chief Complaint [id number] 05/08/24 17:43 Triage Note Pt has had multiple syncopal 05/08/24 15:07 episodes today. found her with lip injury this morning, presumably hit her face off of the nightstand. Pt has had witnessed syncopal events at 10 AM and 2 PM today. Hx of triple bypass 2017 in [facility] in [place] . Denies CP or SOB. Medical / Surgical History (Last Reviewed 05/08/24 @ 17:39 by Keith Nascimento MD) Osteoporosis Essential hypertension Right bundle branch block Arteriosclerosis of coronary artery Hyperpigmentation of skin Polyneuropathy Urinary incontinence, mixed Mild neurocognitive disorder Diabetic neuropathy Type 2 diabetes mellitus Tendinitis Proteinuria Idiopathic osteoarthritis Dupuytren's disease Hypertrophic scar History of thyroid disorder Hx of chronic obstructive lung disease Dementia History of degenerative joint disease GERD (gastroesophageal reflux disease) Diabetes mellitus Hypothyroidism Nodular thyroid disease Hypertension complications Neuropathy, peripheral SOB (shortness of breath) Diabetic foot ulcer Atypical chest pain (Last Reviewed 05/08/24 @ 17:39 by Keith Nascimento MD) Hx of CABG S/P CABG x 2 (~2018) Most Recent Vital Signs Temperature 36.6 C 05/08/24 15:07 Temperature Source Oral 05/08/24 15:07 Pulse 105 H 05/08/24 20:00 Pulse 110 H 05/08/24 20:20 Respiratory Rate 26 H 05/08/24 20:20 Respiratory Effort Normal 05/08/24 16:02 Respiratory Depth Normal 05/08/24 16:02 Respiratory Pattern Normal 05/08/24 16:02 Blood Pressure 143/64 H 05/08/24 20:00 Blood Pressure Mean 91 05/08/24 20:00 Blood Pressure Position Supine 05/08/24 15:07 Pulse Oximetry 95 05/08/24 20:20 Oxygen Delivery Method Room Air 05/08/24 15:07 Oxygen Flow Rate 0 05/08/24 15:07 Pain Level 6 05/08/24 16:21 Allergies ciprofloxacin (From Cipro) Allergy (Severe, Verified 05/08/24 15:12) Hives Precautions Isolation Standard precaution 05/08/24 16:02 IV IV Catheter Type [Left Saline Lock Antecubital] IV Catheter Gauge [Left 18 Antecubital] Diagnostics 0105/08/24 05/08/24 Range/Units 18:38 16:38 16:04 WBC (4.4-10.8) 10^3/uL RBC (3.93-5.22) 10^6/uL Hgb (11.2-15.7) g/dL Hct (36.0-46.0) % MCV (80-95) fL MCH (27.0-33.0) pg MCHC (32.0-36.0) % RDW (11.7-14.6) % Plt Count (130-400) 10^3/uL MPV (8.0-11.0) fL Immature Gran % % Neutrophils % % Lymphocytes % % Monocytes % % Eosinophils % % Basophils % % Nucleated RBC % (0.0-0.3) % Absolute Neutrophils (1.2-6.7) 10^3/uL Absolute Lymphocytes (1.2-3.4) 10^3/uL Absolute Monocytes (0.1-0.8) 10^3/uL Absolute Eosinophils (0.0-0.7) 10^3/uL Absolute Basophils (0.0-0.2) 10^3/uL Sodium (136-145) mmol/L Potassium (3.5-5.1) mmol/L Chloride (98-107) mmol/L Carbon Dioxide (21.0-32.0) mmol/L Anion Gap (3-11) mmol/L BUN (7-18) mg/dL Creatinine (0.55-1.02) mg/dL Est GFR (CKD-EPI 2020) (mL/min/1.73m2) Glucose (74-106) mg/dL Calcium (8.5-10.1) mg/dL Magnesium (1.8-2.4) mg/dL Total Bilirubin (0.2-1.0) mg/dL AST (15-37) U/L ALT (14-59) U/L Alkaline Phosphatase (46-116) U/L Troponin I Cancelled Cancelled (<or=51) ng/L Total Protein (6.4-8.2) g/dL Albumin (3.4-5.0) g/dL TSH (0.36-3.74) uIU/mL Urine Color Yellow (Yellow) Urine Clarity Clear (Clear) Urine pH 6.0 (5-8) Ur Specific [place] 1.010 (1.005-1.025) Urine Protein Negative (Neg-Trace) mg/dL Urine Ketones Negative (Negative) mg/dL Urine Blood Negative (Negative) Urine Nitrite Negative (Negative) Urine Bilirubin Negative (Negative) Urine Urobilinogen 0.2 (Up to 0.2) mg/dL Ur Leukocyte Esterase Trace H (Negative) Urine RBC 0-2 (0-2) HPF Urine WBC 0-2 (0-5) HPF Ur Epithelial Cells Rare (Negative) HPF Urine Crystals Negative (Negative) HPF Urine Bacteria Rare (Negative) HPF Urine Casts Negative (Negative) LPF Urine Mucus Negative (Negative) Ur Culture Indicated? No Urine Glucose Negative (Negative) mg/dL 05/08/24 Range/Units 15:56 WBC 10.46 (4.4-10.8) 10^3/uL RBC 4.86 (3.93-5.22) 10^6/uL Hgb 15.1 (11.2-15.7) g/dL Hct 45.6 (36.0-46.0) % MCV 94 (80-95) fL MCH 31.1 (27.0-33.0) pg MCHC 33.1 (32.0-36.0) % RDW 12.0 (11.7-14.6) % Plt Count 223 (130-400) 10^3/uL MPV 9.4 (8.0-11.0) fL Immature Gran % 0.4 % Neutrophils % 86.7 % Lymphocytes % 8.0 % Monocytes % 4.5 % Eosinophils % 0.1 % Basophils % 0.3 % Nucleated RBC % 0.0 (0.0-0.3) % Absolute Neutrophils 9.07 H (1.2-6.7) 10^3/uL Absolute Lymphocytes 0.84 L (1.2-3.4) 10^3/uL Absolute Monocytes 0.47 (0.1-0.8) 10^3/uL Absolute Eosinophils 0.01 (0.0-0.7) 10^3/uL Absolute Basophils 0.03 (0.0-0.2) 10^3/uL Sodium 140 (136-145) mmol/L Potassium 4.4 (3.5-5.1) mmol/L Chloride 105 (98-107) mmol/L Carbon Dioxide 32.1 H (21.0-32.0) mmol/L Anion Gap 2.9 L (3-11) mmol/L BUN 13 (7-18) mg/dL Creatinine 0.9 (0.55-1.02) mg/dL Est GFR (CKD-EPI 2020) 65.03 (mL/min/1.73m2) Glucose 115 H (74-106) mg/dL Calcium 8.9 (8.5-10.1) mg/dL Magnesium 1.7 L (1.8-2.4) mg/dL Total Bilirubin 0.61 (0.2-1.0) mg/dL AST 35 (15-37) U/L ALT 47 (14-59) U/L Alkaline Phosphatase 95 (46-116) U/L Troponin I 4 (<or=51) ng/L Total Protein 7.2 (6.4-8.2) g/dL Albumin 3.7 (3.4-5.0) g/dL TSH 1.03 (0.36-3.74) uIU/mL Urine Color (Yellow) Urine Clarity (Clear) Urine pH (5-8) Ur Specific [place] (1.005-1.025) Urine Protein (Neg-Trace) mg/dL Urine Ketones (Negative) mg/dL Urine Blood (Negative) Urine Nitrite (Negative) Urine Bilirubin (Negative) Urine Urobilinogen (Up to 0.2) mg/dL Ur Leukocyte Esterase (Negative) Urine RBC (0-2) HPF Urine WBC (0-5) HPF Ur Epithelial Cells (Negative) HPF Urine Crystals (Negative) HPF Urine Bacteria (Negative) HPF Urine Casts (Negative) LPF Urine Mucus (Negative) Ur Culture Indicated? Urine Glucose (Negative) mg/dL [id number] Documentation Fingerstick Glucose Start: 05/08/24 15:13 Freq: Status: Active Protocol: Activity Type Activity Date Activity User E-sign Co-sign Detail Recorded Client Recorded Date Recorded By Document 05/08/24 15:12 BKG DAEMON(3) [id number] 05/08/24 15:13 BKG DAEMON(4) Intake and Output - 24 Hour Total 05/08/24 14:56 thru 05/08/24 15:07 Weight 53.6 kg Falls Risk Assessment History of Falls Admit Due to Fall 05/08/24 16:02 Contributing Factors No Factors 05/08/24 16:02 Ambulatory Aids Independent 05/08/24 16:02 Tubes/Lines None 05/08/24 16:02 Gait Evaluation No gait disturbance 05/08/24 16:02 Fall Total Score 25 05/08/24 16:02 Level of Risk Moderate Risk 05/08/24 16:02 v v v v v v v v v Sending and/or Receiving Nurses: Please use comment section below to note any information pertinent to the patient hand-off not included above. Information / Comments: pt is demented, poor historian. admitted for frequent falls today with syncope. lip injury with repair. will be on tele. pt was ambulating ad jason with supervision. no assistive devices. pt has bruising to left side of head as well. pt to go to room 210 Report received from: Shagufta GRIJALVA
--- NOTE | 2024-05-08 21:06 | W.PM.HP.N ---
Date of service: 05/08/24 Time of Service: 19:00 Assessment and Plan Assessment and plan (1) Syncope: Status: Chronic Assessment and plan: 3 syncopal episodes today. Will monitor on telemetry to rule out cardiac arrhythmia. She does have some PVCs. She does not appear to be dehydrated, these do not appear to be seizures. Admit to observation on telemetry, check orthostatics. (2) Laceration of face: Status: Acute Assessment and plan: Lip laceration has been repaired. She has some mild swelling there. (3) Vascular dementia: Status: Acute Assessment and plan: Vascular versus Alzheimer's dementia. She is on memantine and rivastigmine. (4) Thyroid nodule: Status: Acute Assessment and plan: Incidental finding of a right sided thyroid nodule on her head CT. Should be reevaluated as an outpatient. History of Present Illness History of Present Illness Chief Complaint: Syncope Narrative: 79-year-old woman who lives at home with her . Her states that she had 3 syncopal episodes today. The first 1 was unwitnessed he found her down with a split lip. She went in the bathroom and when she saw herself in the mirror she passed out, which he witnessed. Later in the morning he heard a thump and she had passed out again in the bathroom. In the emergency room she had a hematoma on her scalp and a lip laceration that was repaired. Telemetry showed occasional PVCs. Lab work was unremarkable. A head CT was normal. A left hip x-ray was negative for fracture. Her EKG showed PVCs and a right bundle branch block pattern. She is admitted to observation for telemetry. Review of Systems Narrative: She has generally been well. She is known to have some cognitive impairment. She has not had any chest pain, shortness of breath. Both her and her had an upper respiratory infection last week that they have recovered from. They tested COVID-negative. She has a history of coronary disease but has not had any recurrent symptoms since her CABG 2018. [facility] All Active Problems (Updated 05/08/24 @ 21:10 by Ashok Dixon MD) Thyroid nodule (Acute) Laceration of face (Acute) Syncope (Chronic) Vascular dementia (Acute) Alzheimer's dementia without behavioral disturbance (Acute) Medical History (Updated 05/08/24 @ 21:10 by Ashok Dixon MD) COPD (chronic obstructive pulmonary disease) Dupuytren's disease of palm of right hand Urinary bladder incontinence 03/10/2019. Unclear if ROSA MARIA. Rx for overactive bladder prescribed. Coronary artery disease Hyperlipemia Left genital labial abscess 04/2019. 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 Trigger finger, right middle finger Abnormal weight loss Mild cognitive impairment Lisfranc's sprain (05/22/22) R FOOT Fx (2nd, 3rd and 4th metatarsals) Osteoporosis Essential hypertension Right bundle branch block Arteriosclerosis of coronary artery Hyperpigmentation of skin Polyneuropathy Urinary incontinence, mixed Mild neurocognitive disorder Diabetic neuropathy Type 2 diabetes mellitus Tendinitis Proteinuria Idiopathic osteoarthritis Dupuytren's disease Hypertrophic scar History of thyroid disorder Hx of chronic obstructive lung disease Dementia History of degenerative joint disease GERD (gastroesophageal reflux disease) Diabetes mellitus Hypothyroidism Nodular thyroid disease Hypertension complications Neuropathy, peripheral SOB (shortness of breath) Diabetic foot ulcer Atypical chest pain Surgical History Hx of CABG S/P CABG x 2 (~2017) Family History Mother , 88yo Heart disease Triple bypass Hypertension Hyperlipidemia Father , 70's Acoustic neuroma after surgery 1977 Social History Smoking/Tobacco Use Status: Never Second Hand Exposure: No Smoking risk assessment performed?: Yes Alcohol Intake: current Alcohol Intake frequency: a few times a week Alcohol type: wine Drug use: Never Household members: spouse and other Details: Sherin. 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 Daughter Coreena lives in close proximity to patient. other child lives out of state. History History 2 Para Hx # Term Pregnancies 2 Multiple births Hx # Pregnancies Ectopic pregnancies AB induced Hx Number of Living Children AB spontaneous Meds Allergies and Home Medications Allergies Allergy/AdvReac Type Severity Reaction Status Date / Time ciprofloxacin (From Cipro) Allergy Severe Hives Verified 05/08/24 15:12 Home Medications ?Medication ?Instructions ?Recorded ?Confirmed ?Type alendronate 70 mg tablet 70 mg PO QWEEK 03/05/19 05/08/24 History atorvastatin 40 mg tablet (Lipitor) 40 mg PO DAILY 03/05/19 05/08/24 History multivitamin (Daily Multi-Vitamin 1 tab PO DAILY 03/05/19 05/08/24 History tablet) metoprolol succinate 50 mg 50 mg PO DAILY 11/05/20 05/08/24 History tablet,extended release 24 hr levothyroxine 137 mcg tablet 68.5 mcg PO DAILY 05/31/22 05/08/24 History (Synthroid) metformin 500 mg tablet 500 mg PO DAILY 05/31/22 05/08/24 History rivastigmine tartrate 4.5 mg 4.5 mg PO BID 08/13/23 05/08/24 History capsule memantine 10 mg tablet 10 mg PO BID #180 tabs 11/08/23 05/08/24 Rx aspirin 81 mg tablet,delayed 81 mg PO ONCE PRN 04/08/24 05/08/24 History release (Adult Aspirin Regimen) memantine 5 mg tablet 5 mg PO QHS 05/08/24 05/08/24 History rivastigmine tartrate 1.5 mg 1.5 mg PO BID 05/08/24 05/08/24 History capsule Exam Narrative Exam Narrative: On exam she is very pleasant. She has no recollection of the episodes but that does not seem to upset her. Her and daughter are in the room with her. She is in no distress. Her breathing is nonlabored. She smiles with no evidence of facial asymmetry other than a swollen upper lip on the left. There are sutures there. She can move freely in the bed. She flexes and extends her legs without any difficulty. She sits up without difficulty. Her lungs sound clear on the right and left. Her heart sounds are regular and there is no significant murmur. She has a well-healed sternotomy scar. She had no abdominal tenderness to palpation in all 4 quadrants. Neurologically there are no focal deficits other than her cognitive dysfunction as mentioned. Results Labs 05/08/24 15:56 05/08/24 15:56 Labs: Laboratory Results - last 24 hr 05/08/24 05/08/24 05/08/24 15:56 16:04 16:38 WBC 10.46 RBC 4.86 Hgb 15.1 Hct 45.6 MCV 94 MCH 31.1 MCHC 33.1 RDW 12.0 Plt Count 223 MPV 9.4 Immature Gran % 0.4 Neutrophils % 86.7 Lymphocytes % 8.0 Monocytes % 4.5 Eosinophils % 0.1 Basophils % 0.3 Nucleated RBC % 0.0 Absolute Neutrophils 9.07 H Absolute Lymphocytes 0.84 L Absolute Monocytes 0.47 Absolute Eosinophils 0.01 Absolute Basophils 0.03 Sodium 140 Potassium 4.4 Chloride 105 Carbon Dioxide 32.1 H Anion Gap 2.9 L BUN 13 Creatinine 0.9 Est GFR (CKD-EPI 2020) 65.03 Glucose 115 H Calcium 8.9 Magnesium 1.7 L Total Bilirubin 0.61 AST 35 ALT 47 Alkaline Phosphatase 95 Troponin I 4 Cancelled Total Protein 7.2 Albumin 3.7 TSH 1.03 Urine Color Yellow Urine Clarity Clear Urine pH 6.0 Ur Specific [place] 1.010 Urine Protein Negative Urine Ketones Negative Urine Blood Negative Urine Nitrite Negative Urine Bilirubin Negative Urine Urobilinogen 0.2 Ur Leukocyte Esterase Trace H Urine RBC 0-2 Urine WBC 0-2 Ur Epithelial Cells Rare Urine Crystals Negative Urine Bacteria Rare Urine Casts Negative Urine Mucus Negative Ur Culture Indicated? No Urine Glucose Negative 05/08/24 18:38 WBC RBC Hgb Hct MCV MCH MCHC RDW Plt Count MPV Immature Gran % Neutrophils % Lymphocytes % Monocytes % Eosinophils % Basophils % Nucleated RBC % Absolute Neutrophils Absolute Lymphocytes Absolute Monocytes Absolute Eosinophils Absolute Basophils Sodium Potassium Chloride Carbon Dioxide Anion Gap BUN Creatinine Est GFR (CKD-EPI 2020) Glucose Calcium Magnesium Total Bilirubin AST ALT Alkaline Phosphatase Troponin I Cancelled Total Protein Albumin TSH Urine Color Urine Clarity Urine pH Ur Specific [place] Urine Protein Urine Ketones Urine Blood Urine Nitrite Urine Bilirubin Urine Urobilinogen Ur Leukocyte Esterase Urine RBC Urine WBC Ur Epithelial Cells Urine Crystals Urine Bacteria Urine Casts Urine Mucus Ur Culture Indicated? Urine Glucose Last Vital Signs Temp 36.6 C 05/08/24 15:07 Pulse 105 H 05/08/24 20:00 Resp 26 H 05/08/24 20:20 BP 143/64 H 05/08/24 20:00 Pulse Ox 95 05/08/24 20:20 PAWSS Pt Consumed Any Amount of Alcohol Within the Last 30 days OR had positive LISA Upon Admission: No Time Spent Time spent with Patient: 40-54 minutes Time was spent: preparing to see the patient(eg.review tests), obtaining and/or reviewing separately otained hiistory, ordering medications,tests, procedures, referring, communicating with other health home care coordinator and indepentently interpreting results
[2024-05-08] MEDS: Enoxaparin 40 MG/0.4 ML SYR SC (22:25)
[2024-05-08] MEDS: Metoprolol CR 50 MG TABCR PO (22:26)
[2024-05-08] MEDS: Normal Saline Flush 10 ML SYR IVP (22:26)
[2024-05-09 03:26] VITALS: BP 150/86; PULSE 81; RESP 16; TEMP 36.4; O2SAT 98
[2024-05-09 06:41] LABS: Abs Immature Grans 0.03 10^3/uL (0.0-0.06); Absolute Basophil Count 0.04 10^3/uL (0.0-0.2); Absolute Lymphocyte Count 1.53 10^3/uL (1.2-3.4); Absolute Monocyte Count 0.43 10^3/uL (0.1-0.8); Absolute Neutrophil Count 4.62 10^3/uL (1.2-6.7); Basophils % 0.6 %; Eosinophils % 1.5 %; HCT 45.2 % (36.0-46.0); HGB 15.1 g/dL (11.2-15.7); Immature Grans % 0.4 %; Lymphocytes % 22.7 %; MCH 30.9 pg (27.0-33.0); MCHC 33.4 % (32.0-36.0); MCV 92 fL (80-95); MPV 9.5 fL (8.0-11.0); Monocytes % 6.4 %; Neutrophils % 68.4 %; Platelet Count 212 10^3/uL (130-400); RBC 4.89 10^6/uL (3.93-5.22); RDW 12.2 % (11.7-14.6); RDW-SD 41.9 fL; WBC 6.75 10^3/uL (4.4-10.8)
[2024-05-09 07:27] LABS: Anion Gap 9.4 mmol/L (3-11); BUN 15 mg/dL (7-18); CO2 28.6 mmol/L (21.0-32.0); CREATININE 0.8 mg/dL (0.55-1.02); Calcium 8.9 mg/dL (8.5-10.1); Chloride 107 mmol/L (98-107); Glucose 125 mg/dL (74-106); Potassium 3.9 mmol/L (3.5-5.1); Sodium 145 mmol/L (136-145)
[2024-05-09 07:31] VITALS: BP 137/71; PULSE 67; RESP 16; TEMP 36.5; O2SAT 98
[2024-05-09] MEDS: Multivitamin TAB 1 TAB PO (08:31)
[2024-05-09] MEDS: Memantine 5 MG TAB 10 MG PO ×2 (08:31→19:42)
[2024-05-09] MEDS: Rivastigmine 1.5 MG CAP 4.5 MG PO ×2 (08:32→19:42)
[2024-05-09] MEDS: Normal Saline Flush 10 ML SYR IVP ×3 (08:32→19:42)
--- NOTE | 2024-05-09 09:08 | PDOC.CMIN ---
Date of service: 05/09/24 Time of Service: 09:08 Care Management Initial Assmt Initial Assessment Reason for Hospitalization: syncope Functional Status/Living Situation Patient Presentation: Rebecca was sitting up in bed when CM met with her. She was pleasant in manner and engaged easily with CM. Rebecca lives in [facility] in a single family home with her Kaleb. They have 2 daughters and 4 grandchildren. One daughter lives locally and the other lives in [place]. 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 She is independent at baseline and does not receive any services. Rebecca was admitted with syncope. Apparently she had 3 syncopal episodes yesterday, the last of which resulted in a lip laceration and hitting her head. She informed CM that she feels fine today except that her hip and lip are sore. She indicated that she was hoping to be discharged later today. Town of Residence: [facility] Resides with: Spouse ( Kaleb) Significant Other/Family: Out of area (one daughter local, one in [place]) Employment Status: Retired Instrumental Activities of Daily Living (ADLs): Independent Medications Medication Management: No Issues/Barriers identified Advance Directives Advance Directives: Do you have an Advance Directive: Y 03/27/19 16:11 AD On File at [facility]: N 03/27/19 16:11 Date Asked 05/08/24 05/08/24 14:59 AD Date Reviewed COLST On File at [facility] COLST Date Scanned Code Status Resuscitation Status Full Code Insurance Coverage/Financial Issues Insurance: Medicare [facility] Care Team Visit Care Team Role Provider Type Marybel Tom Primary Care Provider NON-[facility] STAFF PHYSICIAN Keith Nascimento MD Emergency Provider [facility] STAFF PHYSICIAN Ashok Dixon MD Admit Provider [facility] STAFF PHYSICIAN Attending Provider Discharge Potential Discharge Needs: PCP F/U Appt Anticipated Barriers to Discharge: None Identified Patient/Family Education Needs: Review discharge instructions, discuss Ask Me Three Transportation: Private vehicle Plan: Anticipate Rebecca will be discharged home with no new services when medically stable. She will follow up with her PCP and plan of care and transport with family. CM willl follow and continue to assess for discharge needs. Social Determinants of Health Screening Social Determinants of Health last assessed: 05/09/24 Will the Patient Participate in the Screening?: Yes Do you worry about having a steady place to live?: yes What is your living situation today?: I have housing today, but am worried about losing it (housing stable) Problems where you live: no known problems In the past 12 months, have you had to go without electric, gas, oil or water in your home?: no Have you or anyone in your house had to go without enough food to eat?: no Has lack of transportation kept you from medical appointments or from doing things needed for daily living?: no Has anyone in your life made you feel unsafe or unsupported?: no How hard is it for you to pay for the very basics like food, housing, medical care, and heating? Would you say it is:: Not hard at all Do you want help finding or keeping work or a job?: I do not need or want help If for any reason you need help with day-to-day activities such as bathing, preparing meals, shopping, managing finances, etc., do you get the help you need?: I get all the help I need How often do you feel lonely or isolated from those around you?: Rarely Do you speak a language other than Persian at home?: No Does the patient want assistance with any of the above?: No Health Related Social Needs Health related social needs: housing instability, housed, with risk of homelessness (Z59.811) and feeling lonely/isolated (Z60.8) PFSH All Active Problems (Updated 05/09/24 @ 04:20 by Ashok Dixon MD) Thyroid nodule (Acute) Laceration of face (Acute) Syncope (Acute) Vascular dementia (Acute) Alzheimer's dementia without behavioral disturbance (Acute) Medical History (Updated 05/09/24 @ 04:20 by Ashok Dixon MD) COPD (chronic obstructive pulmonary disease) Dupuytren's disease of palm of right hand Urinary bladder incontinence 03/10/2019. Unclear if ROSA MARIA. Rx for overactive bladder prescribed. Coronary artery disease Hyperlipemia Left genital labial abscess 04/2019. 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 Trigger finger, right middle finger Abnormal weight loss Mild cognitive impairment Lisfranc's sprain (05/22/22) R FOOT Fx (2nd, 3rd and 4th metatarsals) Osteoporosis Essential hypertension Right bundle branch block Arteriosclerosis of coronary artery Hyperpigmentation of skin Polyneuropathy Urinary incontinence, mixed Mild neurocognitive disorder Diabetic neuropathy Type 2 diabetes mellitus Tendinitis Proteinuria Idiopathic osteoarthritis Dupuytren's disease Hypertrophic scar History of thyroid disorder Hx of chronic obstructive lung disease Dementia History of degenerative joint disease GERD (gastroesophageal reflux disease) Diabetes mellitus Hypothyroidism Nodular thyroid disease Hypertension complications Neuropathy, peripheral SOB (shortness of breath) Diabetic foot ulcer Atypical chest pain Surgical History Hx of CABG S/P CABG x 2 (~2018) Family History Mother , 88yo Heart disease Triple bypass Hypertension Hyperlipidemia Father , 70's Acoustic neuroma after surgery 1977 Social History Smoking/Tobacco Use Status: Never Second Hand Exposure: No Smoking risk assessment performed?: Yes Alcohol Intake: current Alcohol Intake frequency: a few times a week Alcohol type: wine Drug use: Never Household members: spouse and other Details: Sherin. 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 Daughter Nixon lives in close proximity to patient. other child lives out of state. History History 2 Para Hx # Term Pregnancies 2 Multiple births Hx # Pregnancies Ectopic pregnancies AB induced Hx Number of Living Children AB spontaneous
--- NOTE | 2024-05-09 10:15 | W.PM.PROGNOT ---
Date of Service Date of service: 05/09/24 Time of Service: 11:20 Assessment and Plan Assessment and plan (1) Syncope: Status: Acute Assessment and plan: 3 syncopal episodes on the day of presentation. Continue orthostatic VS- not obtained this AM - reordered Telemtry shows NSR no ectopy except seldom PVC's HR 76- continue for 24 hours Echo pending read PT consult Orthostatic VS -negative Will transition her metoprolol succinate to tartrate to reevaluate dosing (2) Laceration of face: Status: Acute Assessment and plan: Lip laceration repaired in the ED w/o signs of infection but residual swelling (3) Vascular dementia: Status: Acute Assessment and plan: Continue home medicine regimen (4) Thyroid nodule: Status: Acute Assessment and plan: Incidental finding of a right sided thyroid nodule on her head CT. Should be reevaluated as an outpatient. TSH 1.03 continue home dose levothyroxine Discussed with Dr. Russell Subjective Subjective Patient reports: no new complaints, feels better, tolerating liquids well and voiding w/o difficulty; denies diarrhea, nausea, vomiting, shortness of breath or fever Exam Narrative Exam Narrative: Constitutional The patient lying in bed comfortable and cooperative during the interview. The patient is well groomed without acute distress HENMT: Head is atraumatic, normocephalic, no lymphadenopathy.left upper lip laceration- repaired- swelling +, no erythema Eyes: Well aligned, intact ROM Neck: Normal ROM, no meningeal signs Neuro:alert and oriented to self, person, place. No neurological focal deficit Chest:Chest is symmetrical and bypass scar healed Resp: Normal respiratory pattern, speaks in full sentences, unlabored breathing, clear lung bilaterally Cardio:Tele NSR HR 76 regular rhythm, S1, S2, no murmur, capillary refill<3 sec., bilateral radial and dorsalis pedis pulses are positive, palpable GI: Abdomen is not distended, soft and non tender, bowel sounds are present : Negative Costovertebral angle tenderness, no bladder distension Back/spine/Pelvis: No back tenderness, normal alignment Integumentary: left lip laceration- repaired Extremities: strength 5/5 to bilateral lower and upper extremities Psych: RASS 0, congruent mood and normal affect. Objective Last Vital Signs Temp 36.5 C 05/09/24 07:31 Pulse 67 05/09/24 07:31 Resp 16 05/09/24 07:31 BP 137/71 05/09/24 07:31 Pulse Ox 98 05/09/24 07:31 Laboratory Results - last 24 hr 05/08/24 05/08/24 05/08/24 15:56 16:04 16:38 WBC 10.46 RBC 4.86 Hgb 15.1 Hct 45.6 MCV 94 MCH 31.1 MCHC 33.1 RDW 12.0 Plt Count 223 MPV 9.4 Immature Gran % 0.4 Neutrophils % 86.7 Lymphocytes % 8.0 Monocytes % 4.5 Eosinophils % 0.1 Basophils % 0.3 Nucleated RBC % 0.0 Absolute Neutrophils 9.07 H Absolute Lymphocytes 0.84 L Absolute Monocytes 0.47 Absolute Eosinophils 0.01 Absolute Basophils 0.03 Sodium 140 Potassium 4.4 Chloride 105 Carbon Dioxide 32.1 H Anion Gap 2.9 L BUN 13 Creatinine 0.9 Est GFR (CKD-EPI 2020) 65.03 Glucose 115 H Calcium 8.9 Magnesium 1.7 L Total Bilirubin 0.61 AST 35 ALT 47 Alkaline Phosphatase 95 Troponin I 4 Cancelled Total Protein 7.2 Albumin 3.7 TSH 1.03 Urine Color Yellow Urine Clarity Clear Urine pH 6.0 Ur Specific [place] 1.010 Urine Protein Negative Urine Ketones Negative Urine Blood Negative Urine Nitrite Negative Urine Bilirubin Negative Urine Urobilinogen 0.2 Ur Leukocyte Esterase Trace H Urine RBC 0-2 Urine WBC 0-2 Ur Epithelial Cells Rare Urine Crystals Negative Urine Bacteria Rare Urine Casts Negative Urine Mucus Negative Ur Culture Indicated? No Urine Glucose Negative 05/08/24 05/09/24 18:38 06:23 WBC 6.75 RBC 4.89 Hgb 15.1 Hct 45.2 MCV 92 MCH 30.9 MCHC 33.4 RDW 12.2 Plt Count 212 MPV 9.5 Immature Gran % 0.4 Neutrophils % 68.4 Lymphocytes % 22.7 Monocytes % 6.4 Eosinophils % 1.5 Basophils % 0.6 Nucleated RBC % 0.0 Absolute Neutrophils 4.62 Absolute Lymphocytes 1.53 Absolute Monocytes 0.43 Absolute Eosinophils 0.10 Absolute Basophils 0.04 Sodium 145 Potassium 3.9 Chloride 107 Carbon Dioxide 28.6 Anion Gap 9.4 BUN 15 Creatinine 0.8 Est GFR (CKD-EPI 2020) 74.90 Glucose 125 H Calcium 8.9 Magnesium Total Bilirubin AST ALT Alkaline Phosphatase Troponin I Cancelled Total Protein Albumin TSH Urine Color Urine Clarity Urine pH Ur Specific [place] Urine Protein Urine Ketones Urine Blood Urine Nitrite Urine Bilirubin Urine Urobilinogen Ur Leukocyte Esterase Urine RBC Urine WBC Ur Epithelial Cells Urine Crystals Urine Bacteria Urine Casts Urine Mucus Ur Culture Indicated? Urine Glucose PAWSS Pt Consumed Any Amount of Alcohol Within the Last 30 days OR had positive LISA Upon Admission: No Have you Been Recently Intoxicated or Drunk Within the Last 30 days?: No Have you Ever Experienced Previous Episodes of Alcohol Withdrawal?: No Have you ever Experienced Withdrawal Seizures?: No Have you ever Experienced Delirium Tremens(DT)s?: No Have you ever undergone Alcohol Rehabilitation Treatment (i.e, inpt ot outpatient treatment programs)?: No Have you ever Experienced Blackouts?: No Have you ever Combined Alcohol with other Downers within the last 90 days?: No Have you ever Combined Alcohol with any other Substance of Abuse during the last 90 days?: No Positive Blood Alcohol level on Presentation? [PCS.BAL]: No Evidence of Increased Autonomic Activity (i.e. HR>120, tremor, sweating, agitation, nausea)?: No Result: 0 Time Spent with Patient Time Spent with Patient: >50 minutes Time was spent: preparing to see the patient(eg.review tests), obtaining and/or reviewing separately otained hiistory, ordering medications,tests, procedures, referring, communicating with other health health care manager, indepentently interpreting results, counseling the patient and care coordination
[2024-05-09 11:21] VITALS: BP 150/88; PULSE 73; RESP 16; TEMP 36.8; O2SAT 98
[2024-05-09 11:58] VITALS: BP 140/71; BP 148/83; BP 150/85; PULSE 70; PULSE 80; PULSE 87
[2024-05-09] MEDS: MAGNESIUM SULFATE 2 GM/50 ML BAG IV_INF (12:23)
--- NOTE | 2024-05-09 12:40 | CHAPLAIN ---
Rebecca's Kaleb was with her when I visited this morning. I know Kaleb and Rebecca from the community. Kaleb explained that Rebecca fainted three times at home yesterday, something that has never happened before., At one point she hit her lip and required a couple of stitches when she got to the ED. They were waiting to talk to the hospitalist for more information. She arrived while I was there, so I left at that point. Rebecca's daughter stayed over night here with her last night. I will continue to visit.
--- NOTE | 2024-05-09 13:45 | PT.INIE ---
PT Notes Visit Reasons: Syncope Physical Therapy Inpatient Initial Evaluation Date: 05/09/2024 Referring Doctor: Nery Garcia NP PT Orders: PT CONSULT: Safety Consult for D/C Precautions: Fall. Standard. Activity as tolerated. Patient Profile/Admitting Diagnosis: Denied is a 79-year-old female with medical history significant for Alzheimer's type dementia, COPD, CABG who presented to the ED on 05/08/2024 due to excessive syncopal episode at home resulting to laceration of upper lip and contusion on the left parietal area. Patient is admitted for close monitoring and management of syncope. PMHX: All Active Problems (Updated 05/08/24 @ 21:10 by Ashok Dixon MD) Thyroid nodule (Acute) Laceration of face (Acute) Syncope (Chronic) Vascular dementia (Acute) Alzheimer's dementia without behavioral disturbance (Acute) Medical History (Updated 05/08/24 @ 21:10 by Ashok Dixon MD) COPD (chronic obstructive pulmonary disease) Dupuytren's disease of palm of right hand Urinary bladder incontinence 03/10/2019. Unclear if ROSA MARIA. Rx for overactive bladder prescribed. Coronary artery disease Hyperlipemia Left genital labial abscess 04/2019. 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 Trigger finger, right middle finger Abnormal weight loss Mild cognitive impairment Lisfranc's sprain (05/22/22) R FOOT Fx (2nd, 3rd and 4th metatarsals) Osteoporosis Essential hypertension Right bundle branch block Arteriosclerosis of coronary artery Hyperpigmentation of skin Polyneuropathy Urinary incontinence, mixed Mild neurocognitive disorder Diabetic neuropathy Type 2 diabetes mellitus Tendinitis Proteinuria Idiopathic osteoarthritis Dupuytren's disease Hypertrophic scar History of thyroid disorder Hx of chronic obstructive lung disease Dementia History of degenerative joint disease GERD (gastroesophageal reflux disease) Diabetes mellitus Hypothyroidism Nodular thyroid disease Hypertension complications Neuropathy, peripheral SOB (shortness of breath) Diabetic foot ulcer Atypical chest pain Surgical History Hx of CABG S/P CABG x 2 (~2018) Social History/Home Situation: Lives with in a private home with 2 steps to enter and rails on B sides. Independent with all mobility ADLs prior to admission. Equipment Owned/DME: None Subjective: Complained of pain in upper lip and L parietal area from syncopal episode at home. Nurse Diane prudently removed IV for anticipated walk by PT of patient but conveyor technician came in for ordered testing. Objective: General Observation: Resting in bed. present in room throughout session. Mental Status: Alert and oriented as to person, place, time, and purpose. Able to pay attention, focus, and respond appropriately. Pain: Soreness reported on upper lip and L parietal area Vital Signs: Closely monitored by nursing staff ROM: Right Upper Extremity: Shoulder Flexion WFL. Shoulder abduction WFL. Elbow flexion WFL. Wrist flexion WFL. Functional opening and closing of hand WFL. Left Upper Extremity: Shoulder Flexion WFL. Shoulder abduction WFL. Elbow flexion WFL. Wrist flexion WFL. Functional opening and closing of hand WFL. Right Lower Extremity: Hip flexion WFL. Hip abduction WFL. Knee flexion WFL. Ankle dorsiflexion WFL. Ankle plantarflexion WFL. Left Lower Extremity: Hip flexion WFL. Hip abduction WFL. Knee flexion WFL. Ankle dorsiflexion WFL. Ankle plantarflexion WFL. Strength: Right Upper Extremity: Shoulder flexors 4/5. Shoulder abductors 4/5. Elbow flexors 5/5. Elbow extensors 5/5. Retail Experience Specialist strong. Left Upper Extremity: Shoulder flexors 4/5. Shoulder abductors 4/5. Elbow flexors 5/5. Elbow extensors 5/5. Retail Experience Specialist strong. Right Lower Extremity: Hip flexors 4/5. Hip abductors 4/5. Knee flexors 5/5. Knee extensors 4/5. Ankle dorsiflexors 4/5. Ankle plantarflexors 4/5. Left Lower Extremity: Hip flexors 4/5. Hip abductors 4/5. Knee flexors 5/5. Knee extensors 4/5. Ankle dorsiflexors 4/5. Ankle plantarflexors 4/5. Bed Mobility/Transfers: Minimal cueing provided for use of B hands as needed for support, movement sequence, AD management, and posture to reduce fall risk and minimize pain report Rolling independent Supine to sit independent Sit to supine independent Sit to stand independent Stand to sit independent Bed to toilet supervision without device Toilet seat to bed supervision without device Gait: 20 feet + 20 feet with supervision, no report of headaceh, chest pain, and lightheadedness. Another 300 feet was made without assistive device, still asymptomatic. Stairs: Up and down 3 x 4-inch steps and 2 x 6-inch steps while holdingonto B rails for support, supervision only. Balance: Static Sitting: Normal Dynamic Sitting: Normal Static Standing: Good Dynamic Standing: Good Special Tests: Mobility Limitations Standardized Measure [facility] AM-PAC 6 clicks Basic Mobility Inpatient Short Form: Raw Score: 24 CMS Score: 0% deficit Informed Consent/Education: Patient was instructed in purpose of PT consult and plan of care. Agreeable to proceed with established PT POC to achieve personal goals. Assessment: Patient state that she is back to baseline mobility level and feels a lot better today. Does not need an assistive device. Patient is assessed as a 42939 moderate complexity based on the following: History: 79-year-old female with past medical history as indicated above Examination: As above Presentation: As above Decision Makin low complexity Goals: N/A. PT evaluation and one treatment session only for functional mobility retraining. Plan of Care/Treatment Plan: N/A. PT evaluation and one treatment session only for functional mobility retraining. DISCHARGE RECOMMENDATIONS: [X] Home with no services. HOme whne medically cleared by hospitalist. No equipment needs at this time. [] Home with services [specify] [] Home with outpatient PT [] [] SNF for continued rehabilitation [] [] Senior Living Care [] [] SNF versus LTC based on ability to participate and progress [] TREATMENT CODE/TIME: 49909 x 20 minutes for 1 unit, 96622 x 15 minutes for 1 unit (13:45?14:07 and 15:02?15:17). Thank you for the opportunity to participate in the care of this patient. Kemi Damian PT, DPT, CLT [facility] [place], [place]
--- NOTE | 2024-05-09 13:56 | NUR.NOTE ---
Nursing Note: CM in to speak to pt's
[2024-05-09 15:11] VITALS: BP 140/81; PULSE 78; RESP 16; TEMP 36.4; O2SAT 97
--- NOTE | 2024-05-09 15:24 | PT.INIE ---
PT Notes Visit Reasons: Syncope
--- NOTE | 2024-05-09 15:24 | IN_ITS ---
PT Notes Visit Reasons: Syncope
[2024-05-09 19:33] VITALS: BP 130/68; PULSE 82; RESP 20; TEMP 36.7; O2SAT 96
[2024-05-09] MEDS: Enoxaparin 40 MG/0.4 ML SYR SC (19:41)
[2024-05-09] MEDS: Atorvastatin 40 MG TAB PO (19:42)
[2024-05-09] MEDS: Metoprolol 12.5 MG TAB PO (22:26)
[2024-05-10] MEDS: Metoprolol 12.5 MG TAB PO ×2 (04:00→10:57)
[2024-05-10 04:05] VITALS: BP 115/52; PULSE 100; RESP 18; TEMP 36.4; O2SAT 98
[2024-05-10] MEDS: Multivitamin TAB 1 TAB PO (08:33)
[2024-05-10] MEDS: Memantine 5 MG TAB 10 MG PO (08:33)
[2024-05-10] MEDS: Normal Saline Flush 10 ML SYR IVP (08:34)
[2024-05-10] MEDS: Rivastigmine 1.5 MG CAP 4.5 MG PO (08:34)
[2024-05-10 08:48] VITALS: BP 151/63; PULSE 82; RESP 16; TEMP 36.8; O2SAT 98
--- NOTE | 2024-05-10 09:28 | PT.INDS ---
PT Notes Visit Reasons: Syncope Physical Therapy Inpatient Initial Evaluation Date: 05/10/2024 Referring Doctor: Nery Garcia NP PT Orders: PT CONSULT: Safety Consult for D/C Precautions: Fall. Standard. Activity as tolerated. Patient Profile/Admitting Diagnosis: Denied is a 79-year-old female with medical history significant for Alzheimer's type dementia, COPD, CABG who presented to the ED on 05/08/2024 due to excessive syncopal episode at home resulting to laceration of upper lip and contusion on the left parietal area. Patient is admitted for close monitoring and management of syncope. PMHX: All Active Problems (Updated 05/08/24 @ 21:10 by Ashok Dixon MD) Thyroid nodule (Acute) Laceration of face (Acute) Syncope (Chronic) Vascular dementia (Acute) Alzheimer's dementia without behavioral disturbance (Acute) Medical History (Updated 05/08/24 @ 21:10 by Ashok Dixon MD) COPD (chronic obstructive pulmonary disease) Dupuytren's disease of palm of right hand Urinary bladder incontinence 03/10/2019. Unclear if ROSA MARIA. Rx for overactive bladder prescribed. Coronary artery disease Hyperlipemia Left genital labial abscess 04/2019. 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 Trigger finger, right middle finger Abnormal weight loss Mild cognitive impairment Lisfranc's sprain (05/22/22) R FOOT Fx (2nd, 3rd and 4th metatarsals) Osteoporosis Essential hypertension Right bundle branch block Arteriosclerosis of coronary artery Hyperpigmentation of skin Polyneuropathy Urinary incontinence, mixed Mild neurocognitive disorder Diabetic neuropathy Type 2 diabetes mellitus Tendinitis Proteinuria Idiopathic osteoarthritis Dupuytren's disease Hypertrophic scar History of thyroid disorder Hx of chronic obstructive lung disease Dementia History of degenerative joint disease GERD (gastroesophageal reflux disease) Diabetes mellitus Hypothyroidism Nodular thyroid disease Hypertension complications Neuropathy, peripheral SOB (shortness of breath) Diabetic foot ulcer Atypical chest pain Surgical History Hx of CABG S/P CABG x 2 (~2018) Social History/Home Situation: Lives with in a private home with 2 steps to enter and rails on B sides. Independent with all mobility ADLs prior to admission. Equipment Owned/DME: None Subjective: No c/o pain, feeling ready to go home. Does ask questions about return to activity. Discussed gradual return. She does go to gym at baseline and walks 1/2 mi with , recommend to take about 10 days of gradual increased activty and no onset of symptoms. Discussed this with her daughter. Objective: General Observation: Sitting up in bed. Daughter present in room throughout session. Mental Status: Alert and oriented as to person, place, time, and purpose. Able to pay attention, focus, and respond appropriately, asks questions. Pain: none Vital Signs: Closely monitored by nursing staff, on halter monitor. ROM: Right Upper Extremity: Shoulder Flexion WFL. Shoulder abduction WFL. Elbow flexion WFL. Wrist flexion WFL. Functional opening and closing of hand WFL. Left Upper Extremity: Shoulder Flexion WFL. Shoulder abduction WFL. Elbow flexion WFL. Wrist flexion WFL. Functional opening and closing of hand WFL. Right Lower Extremity: Hip flexion WFL. Hip abduction WFL. Knee flexion WFL. Ankle dorsiflexion WFL. Ankle plantarflexion WFL. Left Lower Extremity: Hip flexion WFL. Hip abduction WFL. Knee flexion WFL. Ankle dorsiflexion WFL. Ankle plantarflexion WFL. Strength: Right Upper Extremity: Shoulder flexors 4/5. Shoulder abductors 4/5. Elbow flexors 5/5. Elbow extensors 5/5. Land Acquisition Analyst strong. Left Upper Extremity: Shoulder flexors 4/5. Shoulder abductors 4/5. Elbow flexors 5/5. Elbow extensors 5/5. Land Acquisition Analyst strong. Right Lower Extremity: Hip flexors 4/5. Hip abductors 4/5. Knee flexors 5/5. Knee extensors 4/5. Ankle dorsiflexors 4/5. Ankle plantarflexors 4/5. Left Lower Extremity: Hip flexors 4/5. Hip abductors 4/5. Knee flexors 5/5. Knee extensors 4/5. Ankle dorsiflexors 4/5. Ankle plantarflexors 4/5. Bed Mobility/Transfers: Minimal cueing provided to slow down and for use of B hands as needed for support, movement sequence, no AD management, and posture to reduce fall risk and minimize pain report Rolling independent Supine to sit independent Sit to supine independent Sit to stand independent Stand to sit independent Bed to toilet supervision without device Toilet seat to bed supervision without device Gait: 300 feet + stairs up and down in PT clinic x2 with supervision, able to go up no rail and advise use of rail always for down, no report of headaceh, chest pain, and lightheadedness. All without assistive device, still asymptomatic. Stairs: Up and down 2 x 4-inch steps and 2 x 6-inch steps while holding onto B rails for support, supervision only. Functional Exercises to promote RTPLOF and to be carried out at home on d/c: sit to stand x10, squats holding onto solid surface x10, 2x5 ea june, hip abd, SLS 3x10 sec Balance: Static Sitting: Normal Dynamic Sitting: Normal Static Standing: normal Dynamic Standing: normal Informed Consent/Education: Patient was instructed in purpose of PT consult and plan of care. Agreeable to proceed with established PT POC to achieve personal goals. Assessment: Patient state that she is back to baseline mobility level and feels a lot better today. Does not need an assistive device. Able to review progression to HEP , added squats, hip abd, flexion, SLS to HEP. Discussed progression of walking. Will d/c skilled PT at this time. Pt has met goals, indep with home program progression. DISCHARGE RECOMMENDATIONS: [X] Home with no services. HOme whne medically cleared by hospitalist. No equipment needs at this time. TREATMENT CODE/TIME: 28027 x 25 minutes for 2 unit (13214w8). 9:00-9:25 Thank you for the opportunity to participate in the care of this patient. Chula Myers PT,SCS,ATC [facility] [place], [place]
--- NOTE | 2024-05-10 11:16 | CMDISCH_ITS ---
Date of service: 05/10/24 Time of Service: 11:16 LACE Index Scoring Tool Questions: Length of Stay (in days): 2 Was the patient admitted via the E.D.?: Yes Comorbidities: Diabetes w/o Complication and Chronic Pulmonary Disease E.D. Visits: 1 Answers: Total Score: 9 Risk of Readmission: Low Risk Care Management Discharge Plan Reason for Hospitalization: syncope with fall Discharge Plan: Rebecca is discharged home today with no new services. She will f/u with her community providers and continue per her plan of care. Rebecca will transport home with her , Kaleb. Patient/Family Education Needs: Review of discharge instructions, activity, limitations, and discuss ask me 3. SDOH Health Related Social Needs: Health related social needs housing instability, house d, with risk of homelessness (Z59.811), feeling lonely/isolated (Z60.8)
--- NOTE | 2024-05-10 12:12 | DSE_ITS ---
Date of service: 05/10/24 Time of Service: 12:12 DS: Diagnosis Discharge Diagnosis (1) Syncope: Status: Acute (2) Laceration of face: Status: Acute (3) Vascular dementia: Status: Acute (4) Thyroid nodule: Status: Acute Asessment and Plan: Nonemergent thyroid ultrasound should be considered for further evaluation. Discharge Plan Disposition Patient Disposition: Home Condition: Stable Discharge Details Reason For Visit: Syncope Admit Date/Time: 05/08/24 19:00 Admit Provider: Ashok Dixon Attending Provider: Ashok Dixon Primary Care Provider: Marybel Tom Hospital Course Hospital Course: This is a 79-year-old female patient past medical history significant for dementia who presented to the emergency department after 3 falls at home not to be syncopal episodes. She did have a lip laceration which was repaired with suture. Head CT was negative. She was also complaining of left hip pain imaging was negative. She does have a history of coronary artery disease status post CABG in 2018 but had no acute ischemic EKG changes and cardiac workup negative with no electrolyte abnormalities and negative troponin. She was hemodynamically stable. She was referred to observation on the medical surgical unit on telemetry. She had no dysrhythmias. She was evaluated by physical therapy and safely really ambulated. Recheck of her electrolytes kidney functions all normal. She was eating and drinking and felt at her baseline. She is stable for discharge to home with outpatient follow-up with her primary care provider. She was placed on a cardiac event recorder and is being discharged to home with no new services discharge reviewed with and patient both who are eager to be discharged. Discharge discussed with Dr. Russell Bluefield Meds and New Rx's Prescriptions: Continued metoprolol succinate 50 mg tablet extended release 24 hr 50 mg PO DAILY multivitamin [Daily Multi-Vitamin] Tablet 1 tab PO DAILY atorvastatin [Lipitor] 40 mg tablet 40 mg PO DAILY aspirin [Adult Aspirin Regimen] 81 mg tablet,delayed release (DR/EC) 81 mg PO ONCE PRN rivastigmine tartrate 4.5 mg capsule 4.5 mg PO BID memantine 10 mg tablet 10 mg PO BID Qty: 180 3RF levothyroxine [Synthroid] 137 mcg tablet 68.5 mcg PO DAILY rivastigmine tartrate 1.5 mg capsule 1.5 mg PO BID Patient Comments: TAKE ONE CAPSULE BY MOUTH TWICE A DAY Discharge Instructions Instructions: Syncope (fainting) Stand Alone Forms: Nursing Discharge Form Referrals: Marybel Tom [Primary Care Provider] - (Please call your PCP office on Sunday to make a follow up appointment for within 1 to 2 weeks.) Activity:: Activity as Tolerated Equipment/Supplies:: No Equipment Needed Diet:: As Tolerated Discharge Orders Discharge Orders: Discharge Order (Routine); Ordered 05/10/24 Ordered By: Becki Lozano Other Ambulatory Orders: Cardiac Event Recorder (Routine) Timeframe: [id number] Facility: [facility] - Location: Respiratory Therapy Ordered By: Becki Lozano DS: Summary Time Spent with Patient providing and/or coordinating discharge services: Greater than 30 minutes Status at Discharge Functional status at discharge: independent ambulation Overall status at discharge: patient is back to baseline Mental Status: mental status grossly normal (Poor historian with cognitive impairment at baseline) Speech and Movement: speech and movement normal Mood: congruent mood Affect: normal affect Quality:SDOH Health Related Social Needs: Health related social needs housing instability, house d, with risk of homelessness (Z59.811), feeling lonely/isolated (Z60.8) Exam Narrative Exam Narrative: Elderly female of younger than stated age laceration to the left side of her lip approximated with suture intact. Eyes nonicteric noninjected oral mucosas moist neck full range of motion cardiovascular regular rate and rhythm her respirations even and unlabored abdomen benign moving all extremities without edema neurologic she is awake alert oriented to person psychiatric appropriate mood and affect no behavioral disturbances Psych Mental Status: mental status grossly normal (Poor historian with cognitive impairment at baseline) Speech and Movement: speech and movement normal Mood: congruent mood Affect: normal affect DS: Data Vitals/I&O Vitals and I&O: Vital Signs Temperature 36.8 C 05/10/24 08:48 Temperature Source Temporal Artery Scan 05/10/24 08:48 Pulse 82 05/10/24 08:48 Pulse Rhythm Regular 05/08/24 20:49 Pulse 110 H 05/08/24 20:20 Respiratory Rate 16 05/10/24 08:48 Respiratory Effort Normal, Non-Labored 05/08/24 20:49 Respiratory Depth Normal 05/08/24 20:49 Respiratory Pattern Normal 05/08/24 20:49 Blood Pressure 151/63 H 05/10/24 08:48 Blood Pressure Mean 91 05/08/24 20:00 Blood Pressure Position Supine 05/08/24 15:07 Pulse Oximetry 98 05/10/24 08:48 Oxygen Delivery Method Room Air 05/10/24 08:48 Oxygen Flow Rate 0 05/10/24 08:48 Pain Level 0 05/10/24 08:48 Intake & Output 05/09/24 05/10/24 05/10/24 23:59 11:59 23:59 Intake Total 293.333 / 753.333 Output Total 1175 / 1175 500 / 500 Balance -881.667 / -421.667 -500 / -500 Intake: IV 53.333 / 53.333 Oral 240 / 700 Output: Urine 1175 / 1175 500 / 500 Other: Urine Color Yellow Yellow Urine Appearance Clear Clear Urine Odor Normal None PFSH All Active Problems (Updated 05/09/24 @ 04:20 by Ashok Dixon MD) Thyroid nodule (Acute) Laceration of face (Acute) Syncope (Acute) Vascular dementia (Acute) Alzheimer's dementia without behavioral disturbance (Acute) Medical History (Updated 05/09/24 @ 04:20 by Ashok Dixon MD) COPD (chronic obstructive pulmonary disease) Dupuytren's disease of palm of right hand Urinary bladder incontinence 03/10/2019. Unclear if ROSA MARIA. Rx for overactive bladder prescribed. Coronary artery disease Hyperlipemia Left genital labial abscess 04/2019. 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 Trigger finger, right middle finger Abnormal weight loss Mild cognitive impairment Lisfranc's sprain (05/22/22) R FOOT Fx (2nd, 3rd and 4th metatarsals) Osteoporosis Essential hypertension Right bundle branch block Arteriosclerosis of coronary artery Hyperpigmentation of skin Polyneuropathy Urinary incontinence, mixed Mild neurocognitive disorder Diabetic neuropathy Type 2 diabetes mellitus Tendinitis Proteinuria Idiopathic osteoarthritis Dupuytren's disease Hypertrophic scar History of thyroid disorder Hx of chronic obstructive lung disease Dementia History of degenerative joint disease GERD (gastroesophageal reflux disease) Diabetes mellitus Hypothyroidism Nodular thyroid disease Hypertension complications Neuropathy, peripheral SOB (shortness of breath) Diabetic foot ulcer Atypical chest pain Surgical History Hx of CABG S/P CABG x 2 (~2018) Family History Mother , 88yo Heart disease Triple bypass Hypertension Hyperlipidemia Father , 70's Acoustic neuroma after surgery 1977 Social History Smoking/Tobacco Use Status: Never Second Hand Exposure: No Smoking risk assessment performed?: Yes Alcohol Intake: current Alcohol Intake frequency: a few times a week Alcohol type: wine Drug use: Never Household members: spouse and other Details: Sherin. 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 Daughter Nixon lives in close proximity to patient. other child lives out of state. History History 2 Para Hx # Term Pregnancies 2 Multiple births Hx # Pregnancies Ectopic pregnancies AB induced Hx Number of Living Children AB spontaneous Time Spent with Patient Time Spent with Patient: 45-69 minutes Time was spent: preparing to see the patient(eg.review tests), obtaining and/or reviewing separately otained hiistory, ordering medications,tests, procedures, indepentently interpreting results and counseling the patient
== END 2024-05-10 14:04 | disposition home or self-care (01) ==
LOC: ER 17:29 → MS 20:47
PROVIDERS: Admitting Provider Family Medicine; Emergency Provider Emergency Medicine; PCP Family Medicine; Visit Provider Family Medicine
DX: R55 Syncope and collapse (principal); S01.511A Laceration without foreign body of lip, initial encounter; M25.552 Pain in left hip; E04.1 Nontoxic single thyroid nodule; J44.9 Chronic obstructive pulmonary disease, unspecified; I25.10 Atherosclerotic heart disease of native coronary artery without angina pectoris; Z95.1 Presence of aortocoronary bypass graft; G30.9 Alzheimer's disease, unspecified; F02.80 Dementia in other diseases classified elsewhere, unspecified severity, without behavioral disturbance, psychotic disturbance, mood disturbance, and anxiety; W18.39XA Other fall on same level, initial encounter; Z79.899 Other long term (current) drug therapy; F01.50 Vascular dementia, unspecified severity, without behavioral disturbance, psychotic disturbance, mood disturbance, and anxiety; E11.40 Type 2 diabetes mellitus with diabetic neuropathy, unspecified; K21.9 Gastro-esophageal reflux disease without esophagitis; I45.10 Unspecified right bundle-branch block; I10 Essential (primary) hypertension; M81.0 Age-related osteoporosis without current pathological fracture; E03.9 Hypothyroidism, unspecified; R29.6 Repeated falls
CPT/HCPCS: 00123; 12011; 36415; 36416; 80048; 80053; 82962; 93005; 93270; 96365; 96366; 96372; 97161; 97530; 99285; J1650; 70450; 72125; 73502; 81003; 81015; 83735; 84443; 84484; 85025; 93010; 93306; 99222; 99233; 99239; G0378; J3475; J3490

== ENCOUNTER 2024-05-10 13:48 | Outpatient (RCR) | payer MEDICARE, SELFPAY | END 2024-05-23 23:59 | disposition home or self-care (01) | LOC: RT 13:48 | PROVIDERS: PCP Family Medicine; Visit Provider Internal Medicine Cardiovascular Disease | DX: R55 Syncope and collapse (principal); R00.0 Tachycardia, unspecified | CPT/HCPCS: 93270 ==

== ENCOUNTER 2024-05-15 02:28 | Outpatient (CLI) | payer MEDICARE, SELFPAY ==
--- NOTE | 2024-05-15 | DI.US_ITS ---
Exam(s) US THYROID EXAM: US THYROID CLINICAL HISTORY: NONTOXIC SINGLE THYROID NODULE, E04.1. TECHNIQUE: Ultrasound thyroid performed using standard protocol. COMPARISON: CT CT HEAD CERVICAL SPINE WO from 05/08/2024 FINDINGS: There is a single nodule which is in the right lobe and corresponds to incidental finding on recent C T scan RIGHT THYROID LOBE: Measures 2.1 cm AP x 0.2 cm wide x 5.1 cm craniocaudal This solid nodule on the right side measures 3.2 x 1.4 x 1.8 cm. TiRads characteristics are as follows: Composition: Solid-2 points Echogenicity: hypoechoic-2 points Shape: Wider than taller-0 points Margin: Lobulated-2 points Echogenic Foci: None-0 points Total Points for this nodule: 6 ACR Ti-Rads Category: TR4 This TR 4 level nodule requires ultrasound-guided FNA as it measures greater than 1.5 cm ISTHMUS: Normal thickness. There are no nodules in the isthmus. LEFT THYROID LOBE: Measures 0.9 cm AP x 0.1 wide x 3.2 cm craniocaudal There are no nodules in the left thyroid lobe. LYMPH NODES: There is no significant adenopathy. IMPRESSION: 1. There is a 3.2 x 1.4 x 1.8 cm solid TR 4 level nodule in the right lobe which qualifies for ultras ound-guided FNA by TiRads criteria. 2. There is no significant lymphadenopathy. DATA REPOSITORY:
== END 2024-05-15 02:48 ==
LOC: DI 02:28
PROVIDERS: PCP Family Medicine; Visit Provider Family Medicine
DX: E04.1 Nontoxic single thyroid nodule (principal)
CPT/HCPCS: 76536

== ENCOUNTER 2024-05-16 16:37 | Outpatient (CLI) | payer MEDICARE, SELFPAY ==
[2024-05-16 16:47] LABS: TSH (W/Ref FT4) 1.94 uIU/mL (0.36-3.74)
== END 2024-05-16 16:38 | disposition home or self-care (01) ==
LOC: LBO 16:38
PROVIDERS: PCP Family Medicine; Visit Provider Family Medicine
DX: E04.1 Nontoxic single thyroid nodule (principal)
CPT/HCPCS: 36415; 84443

== ENCOUNTER → 2024-05-29 13:31 | Outpatient (BNVA) | payer MEDICARE, SELFPAY | PROVIDERS: PCP Family Medicine; Visit Provider Nurse Practitioner Adult Health | DX: G30.9 Alzheimer's disease, unspecified (principal); F02.80 Dementia in other diseases classified elsewhere, unspecified severity, without behavioral disturbance, psychotic disturbance, mood disturbance, and anxiety | CPT/HCPCS: 99214 ==

== ENCOUNTER 2024-06-10 07:11 | Outpatient (CLI) | payer MEDICARE, SELFPAY ==
--- NOTE | 2024-06-10 08:36 | W.CARDEVENT ---
Date of service: 06/10/24 Time of Service: 08:36 Cardiac Event Recorder Referring Provider:: Marybel Tom Indications:: Syncope Cardiac Event Note: This is a cardiac event monitor. Patient was monitored for 14 days and 10 hours. Predominant rhythm was sinus with an average heart rate overall of 77. Minimum was 54. Maximum was 137. First-degree AV block was noted. There were rare premature ventricular contractions. There were 2 runs of nonsustained ventricular tachycardia, 4 and 7 beats in duration. There was no atrial fibrillation, no high-grade AV block, no pauses greater than 3 seconds There were no apparent patient symptoms
== END 2024-06-10 07:12 | disposition home or self-care (01) ==
LOC: CARDOPNVT 07:11
PROVIDERS: PCP Family Medicine; Visit Provider Internal Medicine Cardiovascular Disease
DX: R55 Syncope and collapse (principal); I44.0 Atrioventricular block, first degree; I47.20 Ventricular tachycardia, unspecified
CPT/HCPCS: 93272

== ENCOUNTER 2024-07-15 09:20 | Outpatient (CLI) | payer MEDICARE, SELFPAY | END 2024-07-15 09:23 | disposition home or self-care (01) | PROVIDERS: PCP Family Medicine; Visit Provider Family Medicine | DX: R55 Syncope and collapse (principal) | CPT/HCPCS: 93270 ==

== ENCOUNTER 2024-07-22 00:36 | Outpatient (CLI) | payer MEDICARE, SELFPAY ==
--- NOTE | 2024-07-22 06:45 | DI.US_ITS ---
Exam(s) US NEEDLE LOCAL OTHER WO RAD EXAM: right-side thyroid nodule TR4,ultrasound guided biopsy COMPARISON: No exams were available for comparison TECHNIQUE: Ultrasound performed using standard protocol. FINDINGS: Sonography was provided for Dr. Connors during the performance of a right thyroid nodule biopsy. Ple ase refer to the procedure report for complete details. DATA REPOSITORY:
--- NOTE | 2024-07-22 12:35 | PAPNONF_PTH ---
PATIENT: Rebecca Middleton LOC: [facility] U#:[id number] AGE/SX: 79/F ROOM: RE07/22/[address]: Yisel Canales : 1945 BED: DIS: 07/22/2024 SPEC #: [id number] RECD: 07/22/24 13:16 STATUS: JOSE REQ #: [id number] SARAH: 07/22/24 12:[address]: Marcel Connors DEPT: [facility] Cytology RECD BY: Ellyn Nice ENTERED: 07/22/24 13:17 SP TYPE: PAPNONF OTHR DR: Yisel Canales Emily Tissues: 1 - BODY FLUID CYTO-FINE NEEDLE [facility] Procedures: BODY FLUID CYTO-FINE NEEDLE [facility]IR[facility] Comments: [id number] (PATH FNA CONSULT) (REFRIGERATED)
--- NOTE | 2024-07-22 13:23 | W.PROCNOTE ---
Date of service: 07/22/24 Time of Service: 13:24 Procedure Note Date of procedure: 07/22/24 Procedure: Ultrasound-guided FNA, pathology present, right thyroid nodule Surgeon/Proceduralist/Physician: Marcel Connors Procedure Diagnosis: 3 cm thyroid nodule, right thyroid lobe Procedure Indications: The patient has a right sided thyroid nodule meeting criteria for biopsy. Options were reviewed with the patient and her given her memory issues. They both wish to proceed with FNA. Consent was filled out and signed prior to procedure. Risks and benefits have been discussed at length. Procedure Description: The patient was positioned in supine position with her neck slightly extended and her head turned to the left. She was prepped and draped in appropriate fashion and ultrasound used to localize the right sided thyroid nodule. Following this, 1% lidocaine with 1/100,000 epinephrine was injected in the skin and subcutaneous tissues overlying the thyroid nodule. A 25-gauge needle was then passed into the thyroid nodule and used to collect material. 2 passes were necessary to hit cellular adequacy. After verifying cellular adequacy, 2 additional passes were made for potential Afirma testing. After ensuring adequate hemostasis, a Band-Aid was applied the patient was allowed to sit, stand, and ambulate. Her vital signs remained stable. I reviewed the aftercare with the patient and her . They will remove the bandage within the next couple of hours and not replace it. They will call with any signs of infection or any concerns or if they do not hear from me within 1 week with regard to pathology results. They had no further questions. They are comfortable with the plan.
== END 2024-07-22 00:56 ==
LOC: DI 00:37
PROVIDERS: PCP Family Medicine; Visit Provider Registered Nurse Maternal Newborn
DX: E07.9 Disorder of thyroid, unspecified (principal)
CPT/HCPCS: 10005; 76942; 88104

== ENCOUNTER 2024-08-14 06:23 | Outpatient (CLI) | payer MEDICARE, SELFPAY ==
--- NOTE | 2024-08-14 08:43 | W.CARDEVENT ---
Date of service: 08/14/24 Time of Service: 08:43 Cardiac Event Recorder Referring Provider:: Marybel Tom Indications:: Syncope Cardiac Event Note: This is a cardiac event monitor. Patient was monitored for 20 days and 9 hours. Predominant rhythm was sinus with an average heart rate overall of 91. There was no bradycardia. Maximum heart rate was 181 There were occasional ventricular ectopic beats. There were several brief runs of nonsustained ventricular tachycardia, less than 4 beats in duration. Periods of tachycardia were noted. These were labeled sinus tachycardia by the computer but are more likely atrial fibrillation/flutter. Heart rates ranged from 160-180 There was no high-grade AV block. There did not appear to be any patient symptoms
== END 2024-08-14 06:24 | disposition home or self-care (01) ==
LOC: CARDOPNVT 06:23
PROVIDERS: PCP Family Medicine; Visit Provider Internal Medicine Cardiovascular Disease
DX: I47.20 Ventricular tachycardia, unspecified (principal); R55 Syncope and collapse
CPT/HCPCS: 93272

== ENCOUNTER → 2024-11-27 15:28 | Outpatient (BNVA) | payer MEDICARE, SELFPAY | PROVIDERS: PCP Family Medicine; Referring Provider Family Medicine; Visit Provider Nurse Practitioner Adult Health | DX: G30.9 Alzheimer's disease, unspecified (principal); F01.50 Vascular dementia, unspecified severity, without behavioral disturbance, psychotic disturbance, mood disturbance, and anxiety | CPT/HCPCS: 99215 ==

== ENCOUNTER → 2024-12-04 13:55 | Outpatient (BNVA) | payer MEDICARE, SELFPAY | PROVIDERS: PCP Family Medicine; Visit Provider Internal Medicine Cardiovascular Disease | DX: I25.810 Atherosclerosis of coronary artery bypass graft(s) without angina pectoris (principal); I48.0 Paroxysmal atrial fibrillation | CPT/HCPCS: 99214 ==

== ENCOUNTER 2025-03-12 18:51 | Outpatient (REF) | payer MEDICARE, SELFPAY ==
[2025-03-12 20:30] LABS: Abs Immature Grans 0.02 10^3/uL (0.0-0.06); HCT 46.5 % (36.0-46.0); HGB 15.2 g/dL (11.2-15.7); Immature Grans % 0.3 %; MCH 30.6 pg (27.0-33.0); MCHC 32.7 % (32.0-36.0); MCV 94 fL (80-95); MPV 9.7 fL (8.0-11.0); Platelet Count 222 10^3/uL (130-400); RBC 4.96 10^6/uL (3.93-5.22); RDW 12.2 % (11.7-14.6); RDW-SD 42.6 fL; WBC 5.78 10^3/uL (4.4-10.8)
[2025-03-12 20:47] LABS: TSH (W/Ref FT4) 0.94 uIU/mL (0.55-4.78)
[2025-03-12 20:50] LABS: ALT 40 U/L (10-49); AST 37 U/L (<34); Albumin 4.6 g/dL (3.4-5.0); Alkaline Phosphatase 70 U/L (46-116); Anion Gap 8.8 mmol/L (3-11); BUN 17 mg/dL (9-23); Bilirubin, Total 0.80 mg/dL (0.2-1.2); CO2 32.2 mmol/L (20.0-31.0); Calcium 9.5 mg/dL (8.3-10.6); Chloride 105 mmol/L (98-107); Glucose 184 mg/dL (74-106); Potassium 3.9 mmol/L (3.5-5.1); Sodium 146 mmol/L (136-145); Total Protein 7.2 g/dL (5.7-8.2)
== END 2025-03-12 18:52 | disposition home or self-care (01) ==
LOC: NCHCN 18:51
PROVIDERS: PCP Family Medicine; Visit Provider Family Medicine
DX: R63.4 Abnormal weight loss (principal); E03.9 Hypothyroidism, unspecified
CPT/HCPCS: 80053; 84443; 85025